=== PATIENT | male | born 1960 | race Caucasian/White ===

== ENCOUNTER 2019-06-27 14:50 | Inpatient (IN) ==
[2019-06-27 15:36] LABS: Basophils # (auto) 0.03 K/uL (0-0.2); Basophils % (auto) 0.2 %; Eosinophils # (auto) 0.25 K/uL (0-0.5); Eosinophils % (auto) 1.6 %; Hematocrit (blood only) 47.6 % (42-52); Hemoglobin 16.3 g/dL (14.0-18.0); Immature Granulocytes # (auto) 0.04 K/uL (0.00-0.02); Immature Granulocytes % (auto) 0.3 %; Lymphocytes # (auto) 2.21 K/uL (1.2-3.4); Lymphocytes % (auto) 14.2 %; Mean Corpuscular Hemoglobin 30.6 pg (25-34); Mean Corpuscular Hgb Conc 34.2 g/dL (32-36); Mean Corpuscular Volume 89.5 fL (80-100); Mean Platelet Volume 10.3 fL (7.4-10.4); Monocytes # (auto) 0.92 K/uL (0.11-0.59); Monocytes % (auto) 5.9 %; Neutrophils # (auto) 12.14 K/uL (1.4-6.5); Neutrophils % (auto) 77.8 %; Platelet Count 207 K/uL (130-400); RDW Coefficient of Variation 13.7 % (11.5-14.5); RDW Standard Deviation 44.8 fL (36.4-46.3); Red Blood Count 5.32 M/uL (4.7-6.1); White Blood Count 15.59 K/uL (4.8-10.8)
--- NOTE | 2019-06-27 15:38 | XRay Report ---
XR chest 1V portable CLINICAL HISTORY: Chest Pain pain COMPARISON STUDY: No previous studies for comparison. FINDINGS: The bones soft tissues and hemidiaphragms are normal. The cardiomediastinal silhouette is n ormal. The lungs are clear. The pulmonary vasculature is normal. IMPRESSION: Negative chest. The above report was generated using voice recognition software. It may contain grammatical, syntax or spelling errors. Electronically signed by: Charly Sosa M.D. 06/27/2019 3:37 PM
[2019-06-27 15:51] LABS: D Dimer 400 ug/L FEU (0-500); Partial Thromboplastin Ratio 0.9; Partial Thromboplastin Time 23.9 Seconds (21.0-31.0); Prothrombin Time 9.9 Seconds (9.0-12.0)
[2019-06-27 15:52] LABS: Alanine Aminotransferase 71 U/L (12-78); Aspartate Aminotransferase 72 U/L (15-37); Blood Urea Nitrogen 11 mg/dl (7-18); Carbon Dioxide 27 mmol/L (21-32); Chloride 107 mmol/L (98-107); Creatinine Clr Calc Pharmacy 87.1 ml/min; Est GFR (African American) 83.5; Est GFR (Non-African American) 72.1; Glucose 153 mg/dl (70-99); Lipase 126 U/L (73-393); Sodium 140 mmol/L (136-145)
[2019-06-27 15:57] LABS: Albumin Globulin Ratio 1.1 (0.9-2); Alkaline Phosphatase 110 U/L (45-117); Bilirubin,Total 0.6 mg/dl (0.2-1); Creatine Kinase 68 U/L (39-308); Creatine Kinase MB < 1.0 ng/ml (0.5-3.6); Globulin 3.6 gm/dl (2.5-4.0); Total Protein 7.6 gm/dl (6.4-8.2); Troponin I < 0.015 ng/ml (0-0.045)
--- NOTE | 2019-06-27 17:37 | History & Physical Report ---
Date of Service June 27, 2019 Assessment & Plan (1) Chest pain: We will follow the chest pain protocol. Monitor EKG and cardiac enzymes per protocol. Monitor the patient on the telemetry floor. Check echocardiogram. (2) Diabetes: Continue home meds. Sliding-scale insulin per protocol. (3) GERD (gastroesophageal reflux disease): Add PPI for GI prophylaxis. Maalox as needed basis. (4) DVT prophylaxis: Subcu Lovenox for DVT prophylaxis. 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 The patient presented to the emergency room with the complaints of chest pain which started this afternoon. He woke up from sleep with retrosternal chest pain radiating to the right side of his chest. He rates it as 8 out of 10 intensity lasted for approximately 2 hours. Currently the patient is chest pain-free. The first set of EKG and cardiac enzymes is negative; he will be admitted under observation for further evaluation and management. Allergies Allergy/AdvReac Type Severity Reaction Status Date / Time No Known Allergies Allergy Unverified 06/27/19 15:11 Home Medications Home Medications Medication Instructions Recorded Confirmed Type empagliflozin [Jardiance] 25 mg PO DAILY 06/27/19 06/27/19 History ibuprofen 600 mg PO Q6H PRN 06/27/19 06/27/19 History lisinopril 5 mg PO DAILY 06/27/19 06/27/19 History metformin [Glucophage XR] 1,000 mg PO BID 06/27/19 06/27/19 History pravastatin [Pravachol] 40 mg PO QPM 06/27/19 06/27/19 History Past Med/Surg History Medical History Diabetes Surgical History No pertinent past surgical history Family History Other Heart disease Social History Preferred Language: Tajik Communication Ability: Effective 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 Beliefs That Will Affect Care: None Current Living Situation: Spouse Other Information That Helps Us Care for You: No Feels Safe at Home: Yes Safety Concerns: Feels Safe At This Time Smoking Status: Current every day smoker Tobacco Type: cigarettes ; Cigarettes Per Day: 20 ; Hx Alcohol Use: Yes Alcohol type: beer Hx Substance Use: No Review of Systems Review of Systems: All systems reviewed & are unremarkable except as noted in HPI & below Physical Exam Physical Exam: GENERAL : No acute distress EYES: No icterus, gaze conjugate NOSE: No evidence of epistaxis MOUTH: No lesions or candidiasis, mucosa moist NECK: Supple LUNGS: CTA B/L, no wheezes, rales or rhonchi HEART: Regular, rate controlled ABDOMEN: Soft, NT, ND, BS Present EXTREMITIES: No LE edema, pedal pulses intact NEURO: A&OX3 Results & Data Vital Signs (Past 12 Hours) Vital Signs Temp Pulse Pulse Resp BP BP Pulse Ox 06/27/19 16:00 78 16 135/74 96 06/27/19 15:40 88 20 131/83 95 06/27/19 14:58 98.1 F 84 16 126/69 100 Laboratory Results 06/27/19 15:26 06/27/19 15:26 Diagnostic Findings cc: ~ XR chest 1V portable CLINICAL HISTORY: Chest Pain pain COMPARISON STUDY: No previous studies for comparison. FINDINGS: The bones soft tissues and hemidiaphragms are normal. The cardiomed iastinal silhouette is normal. The lungs are clear. The pulmonary vasculature is normal. IMPRESSION: Negative chest. Code Status & VTE Plan VTE Prophylaxis Plan VTE Prophylaxis will be ordered: Yes PG Care Time/CCT Total # of Minutes Spent Total Time Spent with Patient: Total time spent is greater than 50% [facility] (as documented) at patient's floor/unit and/or counseling patient: 60 m
[2019-06-27] MEDS ORDERED: NITROGLYCERIN SL 0.4 MG/TAB TAB SL PRN (19:38)
[2019-06-27] MEDS ORDERED: MoRPHine SULFATE 2 MG/ML CARP IV PRN (19:38)
[2019-06-27] MEDS ORDERED: IBUPROFEN 600 MG TAB PO PRN (19:38)
[2019-06-27] MEDS ORDERED: ALUMINUM/MAGNESIUM SUSP 30 ML UDC PO PRN (19:38)
[2019-06-27] MEDS ORDERED: DEXTROSE 50% 50 ML SYRINGE IV PRN (20:00)
[2019-06-27] MEDS ORDERED: GLUCOSE 10 TABS/TUBE PO PRN (20:00)
[2019-06-27] MEDS ORDERED: GLUCAGON FOR INJ 1 MG VIAL IM PRN (20:00)
[2019-06-27] MEDS ORDERED: CARBOHYDRATES FOR HYPOGLYCEMIA PO PRN (20:00)
[2019-06-27] MEDS ORDERED: GLUCOSE 40% GEL 15 GM TUBE PO PRN (20:00)
--- NOTE | 2019-06-27 20:04 | Emergency Department Note ---
Entered by Pako Devlin acting as a scribe for Mian Kang DO History of Present Illness General Chief complaint: Cardiac Assessment Stated complaint: chest pain Source: patient and RN notes reviewed History of Present Illness Onset (ago): hour(s) (1.5) Location: chest and right Pain Consistency: + now resolved Maximum Pain Intensity: 0 Relieved By: + medication Associated symptoms: + denies other symptoms (vomiting, back pain), + shortness of breath and + other (nausea) The patient is a 59 y/o male who presents to the ED w/ CC of a resolved episode of right sided chest pain that occurred 1.5 hours ago. 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 He reports he drove 10 hours last evening and is from [facility]. The patient notes he woke up today around 1330 and had right sided chest, shortness of breath, and nausea. He states his chest pain radiated into his right side and did not have back pain. The patient reports he is not having chest discomfort or nausea, and he did not vomit. He notes a family history of cardiac issues, and he has not had a stress test in a while. The patient states a history of diabetes, and he is a current smoker. He denies a history of blood clots, and personal cardiac history. Nursing staff notes the patient was given Ibuprofen and 1 SL nitroglycerin. Home Medications Home Medications Medication Instructions Recorded Confirmed Type empagliflozin [Jardiance] 25 mg PO DAILY 06/27/19 06/27/19 History ibuprofen 600 mg PO Q6H PRN 06/27/19 06/27/19 History lisinopril 5 mg PO DAILY 06/27/19 06/27/19 History metformin [Glucophage XR] 1,000 mg PO BID 06/27/19 06/27/19 History pravastatin [Pravachol] 40 mg PO QPM 06/27/19 06/27/19 History Allergies Allergy/AdvReac Type Severity Reaction Status Date / Time No Known Allergies Allergy Unverified 06/27/19 15:11 Past Med/Surg History Medical History Diabetes Surgical History No pertinent past surgical history Family History Other Heart disease Social History Preferred Language: Greek Communication Ability: Effective 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 and A total of 10 systems reviewed and were otherwise negative Physical Exam Vital Signs Vital Signs - 24 hr 06/27/19 14:58 06/27/19 15:26 06/27/19 15:40 Temperature 36.7 C Temperature Source Oral Sepsis Recent Fever Within 48 Hours No Sepsis New/Unexplained Change in Mental Status No Sepsis Action Taken by Nursing No Action Required Pulse Rate 84 Pulse Rate [Right Finger] 88 Respiratory Rate 16 20 Respiratory Effort / Characteristics Non-Labored Non-Labored Respiratory Depth Normal Normal Blood Pressure 126/69 Blood Pressure [Right Arm] 131/83 Blood Pressure Mean 88 Blood Pressure Mean [Right Arm] 99 Pulse Oximetry 100 95 Oxygen Delivery Method Room Air Room Air Room Air 06/27/19 16:00 Temperature Temperature Source Sepsis Recent Fever Within 48 Hours Sepsis New/Unexplained Change in Mental Status Sepsis Action Taken by Nursing Pulse Rate Pulse Rate [Right Finger] 78 Respiratory Rate 16 Respiratory Effort / Characteristics Non-Labored Respiratory Depth Normal Blood Pressure Blood Pressure [Right Arm] 135/74 Blood Pressure Mean Blood Pressure Mean [Right Arm] 94 Pulse Oximetry 96 Oxygen Delivery Method Room Air GENERAL: Patient is awake, alert, and in no acute distress.Patient is resting comfortably and showing no signs of anxiety EYES: The conjunctivae are clear. The pupils are round and reactive. EARS, NOSE, MOUTH AND THROAT: The nose is without any evidence of any deformity. Mucous membranes are moist.Tongue is midline NECK: The neck is nontender and supple. RESPIRATORY: Normal respiratory effort is noted. There is no evidence of wheezing rhonchi or rales to auscultation. CARDIOVASCULAR: Regular rate and rhythm noted. There no murmurs rubs or gallops normal S1 normal S2 GASTROINTESTINAL: The abdomen is soft. Bowel sounds are present in all qu adrants. Abdomen is nontender. MUSCULOSKELETAL/EXTREMITIES: There is no evidence of gross deformity. Full range of motion is noted in the hips and shoulders. SKIN: There is no obvious evidence of any rash. There are no petechiae, pallor or cyanosis noted. NEUROLOGIC: Patient is awake alert and oriented x3. Course 1508: Past medical records reviewed. The patient was evaluated in room C08. A complete history and physical exam was performed. 1618: Upon reevaluation, the patient is resting comfortably. I discussed laboratory and radiographic results with him. He verbalized agreement of the treatment plan. The patient will be evaluated for further management and care. 1720: I reviewed the patient's case with Dr. Pederson, [facility] [place]. He will evaluate the patient for further management. Medical Decision Making Differential Diagnosis Differential diagnoses includes but is not limited to acute coronary syndrome, myocardial infarction, pericarditis, pulmonary embolus, aortic dissection, pneumonia, pneumothorax, musculoskeletal, shingles, esophageal. Medical Records Attestation: I reviewed the patient's medical records. Home Medications Current Medication List: was personally reviewed by me Laboratory Data Attestation: I reviewed the patient's lab results. Result diagrams: 06/27/19 15:26 06/27/19 15:26 Lab Results 06/27/19 06/27/19 06/27/19 Range/Units 15:26 15:26 15:26 WBC 15.59 H (4.8-10.8) K/uL RBC 5.32 (4.7-6.1) M/uL Hgb 16.3 (14.0-18.0) g/dL Hct 47.6 (42-52) % MCV 89.5 (80-100) fL MCH 30.6 (25-34) pg MCHC 34.2 (32-36) g/dL RDW Std Deviation 44.8 (36.4-46.3) fL RDW Coeff of Anna 13.7 (11.5-14.5) % Plt Count 207 (130-400) K/uL MPV 10.3 (7.4-10.4) fL Immature Gran % (Auto) 0.3 % Neut % (Auto) 77.8 % Lymph % (Auto) 14.2 % [place] % (Auto) 5.9 % Eos % (Auto) 1.6 % Baso % (Auto) 0.2 % Immature Gran # (Auto) 0.04 H (0.00-0.02) K/uL Neut # (Auto) 12.14 H (1.4-6.5) K/uL Lymph # (Auto) 2.21 (1.2-3.4) K/uL [place] # (Auto) 0.92 H (0.11-0.59) K/uL Eos # (Auto) 0.25 (0-0.5) K/uL Baso # (Auto) 0.03 (0-0.2) K/uL PT 9.9 (9.0-12.0) Seconds INR 1.0 (0.9-1.1) APTT 23.9 (21.0-31.0) Seconds PTT Ratio 0.9 D-Dimer 400 (0-500) ug/L FEU Sodium 140 (136-145) mmol/L Potassium 5.0 (3.5-5.1) mmol/L Chloride 107 (98-107) mmol/L Carbon Dioxide 27 (21-32) mmol/L Anion Gap 6.0 (3-11) BUN 11 (7-18) mg/dl Creatinine 1.10 (0.6-1.4) mg/dl Est Cr Clr Drug Dosing 87.1 ml/min Est GFR ( Amer) 83.5 Est GFR (Non-Af Amer) 72.1 BUN/Creatinine Ratio 10.0 (10-20) Glucose 153 H (70-99) mg/dl Calcium 9.0 (8.5-10.1) mg/dl Total Bilirubin 0.6 (0.2-1) mg/dl AST 72 H (15-37) U/L ALT 71 (12-78) U/L Alkaline Phosphatase 110 (45-117) U/L Total Creatine Kinase 68 (39-308) U/L CK-MB (CK-2) < 1.0 (0.5-3.6) ng/ml CK/CKMB % Calc TNP Troponin I < 0.015 (0-0.045) ng/ml Total Protein 7.6 (6.4-8.2) gm/dl Albumin 4.0 (3.4-5.0) gm/dl Globulin 3.6 (2.5-4.0) gm/dl Albumin/Globulin Ratio 1.1 (0.9-2) Lipase 126 (73-393) U/L Imaging Data Radiologist's Impression: Radiology results as stated below per my review and the radiologist's interpretation: XR chest 1V portable CLINICAL HISTORY: Chest Pain pain COMPARISON STUDY: No previous studies for comparison. FINDINGS: The bones soft tissues and hemidiaphragms are normal. The cardiomediastinal silhouette is normal. The lungs are clear. The pulmonary vasculature is normal. IMPRESSION: Negative chest. The above report was generated using voice recognition software. It may contain grammatical, syntax or spelling errors. Electronically signed by: Charly Sosa M.D. 06/27/2019 3:37 PM ECG Data Attestation: I personally reviewed and interpreted this ECG as follows: Indication: chest pain Rate (beats per minute): 84 Rhythm: normal sinus ECG Findings: Other (NO: PACs, PVCs, ST elevation, ST depression.) Blood Pressure Blood Pressure Findings: Elevated blood pressure Blood Pressure Disposition: further management by hospitalist MDM Narrative The patient is a 59-year-old male who presented to the emergency department for an evaluation of chest pain. The patient had severe diaphoresis and chest pain. He is a fire truck driver by trade. He does have a history of diabetes. He does have a family history of heart disease as well. Given the patient's risk factors I do feel that he is high risk for acute coronary syndrome. I discussed the patient's laboratory and radiographic studies with him. I also discussed the limitations of the emergency department work-up for chest pain with him. Given his risk factors and heart score I discussed his case with the on-call [facility] hospitalist. They have agreed to evaluate the patient in the emergency department for further management disposition. The patient was treated with aspirin and nitroglycerin prior to arrival with good response. Impression & Plan Chest pain Discharge Plan Visit Data *Final* Discharge Date/Time: 06/27/19 18:49 Chief Complaint: Cardiac Assessment Stated Complaint: chest pain ED Provider: Mian Kang Discharge Problem: Chest pain Patient Disposition: Admitted As Inpatient Discharge Instructions Interventions: ED Discharge Assessment Last Done: 06/27/19 18:49 Discharge Problem: Chest pain Qualifiers: Chest pain type: unspecified Qualified Code(s): R07.9 - Chest pain, unspecified The scribe's documentation has been prepared under my direction and personally reviewed by me in its entirety. I confirm that the note above accurately reflects all work, treatment, procedures, and medical decision making performed by me.
[2019-06-27] MEDS: INSULIN ASPART 100 UNITS/ML 3 ML PEN SC SCH (20:14)
[2019-06-27] MEDS: PANTOprazole 40 MG TAB PO SCH (20:15)
[2019-06-27] MEDS: PRAVASTATIN SOD 40 MG TAB PO SCH (20:15)
[2019-06-27] MEDS: METFORMIN HCL ER 500 MG TABCR PO SCH (20:16)
[2019-06-27] MEDS ORDERED: ENOXAPARIN INJ 40 MG/0.4 ML SYR SQ SCH (21:00)
[2019-06-28] MEDS: METFORMIN HCL ER 500 MG TABCR PO SCH ×2 (08:45→17:19)
[2019-06-28] MEDS: PANTOprazole 40 MG TAB PO SCH (08:46)
[2019-06-28] MEDS: LISINOPRIL 5 MG TAB PO SCH (08:46)
[2019-06-28] MEDS: INSULIN ASPART 100 UNITS/ML 3 ML PEN SC SCH ×4 (08:48→21:00)
[2019-06-28] MEDS ORDERED: ASPIRIN 81 MG ECTAB PO SCH (09:00)
[2019-06-28 10:27] LABS: Basophils # (auto) 0.02 K/uL (0-0.2); Basophils % (auto) 0.2 %; Eosinophils # (auto) 0.29 K/uL (0-0.5); Eosinophils % (auto) 3.4 %; Hematocrit (blood only) 48.5 % (42-52); Hemoglobin 16.4 g/dL (14.0-18.0); Immature Granulocytes # (auto) 0.02 K/uL (0.00-0.02); Immature Granulocytes % (auto) 0.2 %; Lymphocytes # (auto) 2.44 K/uL (1.2-3.4); Lymphocytes % (auto) 28.7 %; Mean Corpuscular Hemoglobin 30.7 pg (25-34); Mean Corpuscular Hgb Conc 33.8 g/dL (32-36); Mean Corpuscular Volume 90.7 fL (80-100); Mean Platelet Volume 10.2 fL (7.4-10.4); Monocytes # (auto) 0.67 K/uL (0.11-0.59); Monocytes % (auto) 7.9 %; Neutrophils # (auto) 5.05 K/uL (1.4-6.5); Neutrophils % (auto) 59.6 %; Platelet Count 206 K/uL (130-400); RDW Coefficient of Variation 13.9 % (11.5-14.5); RDW Standard Deviation 45.5 fL (36.4-46.3); Red Blood Count 5.35 M/uL (4.7-6.1); White Blood Count 8.49 K/uL (4.8-10.8)
[2019-06-28 10:48] LABS: Estimated Average Glucose 171 mg/dl; Hemoglobin A1C 7.6 % (4.5-5.6)
[2019-06-28 10:54] LABS: Alanine Aminotransferase 247 U/L (12-78); Albumin Level 3.8 gm/dl (3.4-5.0); Aspartate Aminotransferase 115 U/L (15-37); BUN Creatinine Ratio 15.1 (10-20); Blood Urea Nitrogen 17 mg/dl (7-18); Calcium 9.1 mg/dl (8.5-10.1); Carbon Dioxide 26 mmol/L (21-32); Chloride 107 mmol/L (98-107); Cholesterol 176 mg/dl (0-200); Creatinine Clr Calc Pharmacy 84.9 ml/min; Est GFR (African American) 82.6; Est GFR (Non-African American) 71.3; Glucose 150 mg/dl (70-99); Potassium 4.8 mmol/L (3.5-5.1); Sodium 138 mmol/L (136-145); Triglycerides 219 mg/dl (0-150); VLDL Cholesterol 44 mg/dl
[2019-06-28 10:58] LABS: Alkaline Phosphatase 153 U/L (45-117); Bilirubin,Total 0.6 mg/dl (0.2-1); Chol HDL Ratio 6; Globulin 3.6 gm/dl (2.5-4.0); HDL Cholesterol 32 mg/dl; LDL Cholesterol Calculated 100 mg/dl; Total Protein 7.4 gm/dl (6.4-8.2); Troponin I < 0.015 ng/ml (0-0.045)
[2019-06-28 14:56] LABS: BUN Creatinine Ratio 16.5 (10-20); Calcium 9.1 mg/dl (8.5-10.1); Creatinine Clr Calc Pharmacy 90.6 ml/min; Est GFR (African American) 89.4; Est GFR (Non-African American) 77.1; Potassium 4.4 mmol/L (3.5-5.1); Prothrombin Time 10.1 Seconds (9.0-12.0)
[2019-06-28 15:03] LABS: Albumin Globulin Ratio 1.1 (0.9-2); Bilirubin,Total 1.9 mg/dl (0.2-1); Globulin 3.6 gm/dl (2.5-4.0); Total Protein 7.6 gm/dl (6.4-8.2)
[2019-06-28 15:17] LABS: Hepatitis B Surface Antigen Neg (Neg)
[2019-06-28 15:45] LABS: Hepatitis C IgG 13Yrs+Old_Rflx Neg (Neg)
[2019-06-28 15:53] LABS: Lyme Ab IgG w/WB Rflx Negative (Negative); Lyme Ab IgM w/WB Rflx Negative (Negative)
--- NOTE | 2019-06-28 15:55 | Ultrasound Report ---
US liver CLINICAL HISTORY: elevated AST-ALT, RUQ pain COMPARISON STUDY: No previous studies for comparison. FINDINGS: The pancreas was not visualized due to overlying bowel gas shadowing. The liver was of increased echogenicity, nonspecific finding most often seen in hepatic steatosis. No focal masses were visualized. The liver was mildly enlarged measuring 21 cm. There is a stone filled gallbladder. There was no significant gallbladder wall thickening. The common bile duct is mildly dilated measuring 8 mm. There are multiple right renal calculi. There is dilatation of the upper pole collecting system versu s a parapelvic cyst. IMPRESSION: 1. Increased hepatic echogenicity, a nonspecific finding most often seen with hepatic steatosis 2. Stone filled gallbladder 3. Mildly dilated common bile duct measuring 8 mm 4. Right-sided nephrolithiasis. Dilatation of the upper pole collecting system versus a parapelvic cy st. Electronically signed by: Washingtno Odonnell M.D. 06/28/2019 3:54 PM
[2019-06-28] MEDS: LACTATED RINGER'S 1,000 ML IV SCH (17:12)
--- NOTE | 2019-06-28 18:17 | Hospitalist Progress Note ---
Date of Service June 28, 2019 Assessment & Plan (1) Cholelithiasis with choledocholithiasis: Concerning US, CBD dilatation, bilirubin and AST/ALT increases for obstruction. Discussed with Cely PITTMAN in contact with Dr Dominguez, recommended MRCP, blood cultures and NPO after midnight for consideration of ERCP. Will also contact surgery to discuss cholecystectomy after this. Afebrile, no pain currently, WBC normal today. Will defer antibiotics for now. Repeat CMP in AM. (2) Diabetes: Stop oral meds and switch to insulin sliding scale alone. If consistently elevated glucose levels will add a basal dose of insulin. Holding ASA in anticipation of ERCP/cholecystectomy. (3) Hepatic steatosis: Follow up with PCP. (4) Hyperlipidemia: Continue home dose pravastatin. LDL 100. (5) Chest pain: Atypical for cardiac pain and given current LFTs and US findings above pain was due to gallstones. Serial troponins negative. Due to significant risk factors he underwent stress echocardiogram which was negative for induced ischemia (6) DVT prophylaxis: Hold lovenox in anticipation of ERCP/cholecystectomy. Subjective Patient reports feeling well this morning. No further pains overnight. Afebrile. Revisited history with the patient. He reports right upper abdominal quadrant, right lower chest pain occurring at rest, aching, lasted for 1 hour, associated nausea and diaphoresis. Had similar pains in the past which she is put down to gallstones. He reports previous ultrasound confirming gallstones. He also reports an extensive history of kidney stones requiring stents and lithotripsy although this has been a problem for over a year. He reports exercise tolerance of walking 1 mile without shortness of breath or chest pain. No orthopnea, PND, claudication, palpitations. He has significant risk factors for coronary artery disease including smoking, diabetes, family history of father with an OH at 45. Review of Systems Review of Systems: All systems reviewed & are unremarkable except as noted in HPI & below Physical Exam Constitutional: well developed and + obese; no acute distress Eyes: PERRL, conjunctivae normal, anicteric sclerae ENMT: external ear and nose normal, oropharynx normal Neck: trachea midline and + thick neck Respiratory: normal respiratory effort, lungs clear to auscultation Cardiovascular: RRR, no murmur, no edema Gastrointestinal (Abdomen): normal bowel sounds, soft, nontender, no hepatosplenomegaly Musculoskeletal: no cyanosis or clubbing, extremities motor strength 5/5 Skin: no rashes, warm and dry Neurologic: awake; no focal motor deficits and not confused Speech / Cognition: normal speech Motor/Sensory: no pronator drift and no sensory deficit Psychiatric: A+Ox3, euthymic affect Results & Data Vital Signs (Past 12 Hours) Vital Signs Temp Pulse Pulse Resp BP Pulse Ox 06/28/19 15:25 89 06/28/19 12:52 98.2 F 84 20 147/90 H 94 06/28/19 08:28 97.9 F 75 20 128/80 94 06/28/19 07:14 72 PG Care Time/CCT Total # of Minutes Spent Total Time Spent with Patient: Total time spent is greater than 50% in coordination of care (as documented) at patient's floor/unit and/or counseling patient: (1) Diabetes Diabetes mellitus type: type 2 Diabetes mellitus long term care pharmacist insulin use: without senior living use Diabetes mellitus complication status: without complication Qualified Code(s): E11.9 - Type 2 diabetes mellitus without com plications (2) Hyperlipidemia Hyperlipidemia type: unspecified Qualified Code(s): E78.5 - Hyperlipidemia, unspecified (3) Chest pain Chest pain type: unspecified Qualified Code(s): R07.9 - Chest pain, unspecified
--- NOTE | 2019-06-28 21:39 | Magnetic Resonance Report ---
MRCP CLINICAL HISTORY: Increasing bilirubin, CBD dilatation. Right upper quadrant pain. TECHNIQUE: Utilizing a 1.5 Betina magnet and dedicated coil, multiplanar, multiecho imaging of the [facility] abdomen was performed utilizing heavily T2 weighted pulsing sequences without IV contrast. COMPARISON STUDY: Right upper quadrant ultrasound June 28, 2019. FINDINGS: There is no intra or extrahepatic biliary ductal dilatation. The 3-D MRCP sequence is mildl y compromised by motion artifact. There are suspected distal common bile duct calculi that measure up to 7 mm. There are numerous gallstones within the gallbladder. There is no evidence for acute cholec ystitis on this exam. Course and caliber of the main pancreatic duct is normal. Fatty infiltration of the liver is better depicted on ultrasound performed earlier today. No hepatic lesions are identifie d on this unenhanced study. Unenhanced images of the spleen and right adrenal gland are unremarkable. A 2.4 cm left adrenal nodule is present. Note is made of mild right hydronephrosis due to a large ri ght renal pelvis calculus which is suboptimally assessed by MRI. This measures approximately 2.6 x 1. 5 cm. There is no left hydronephrosis. No ascites is present. No abdominal lymphadenopathy is noted. A splenule is noted. IMPRESSION: 1. Multiple suspected distal common bile duct calculi which measure up to approximately 7 mm. No bili deandre ductal dilatation. 2. Cholelithiasis. 3. Large right renal pelvis calculus, measuring approximately 2.6 x 1.5 cm, with mild right hydroneph rosis. The calculus could be better assessed by CT. 4. Indeterminate 2.4 cm left adrenal nodule. Electronically signed by: Byron Rodriguez M.D. 06/28/2019 9:38 PM
[2019-06-28] MEDS: PRAVASTATIN SOD 40 MG TAB PO SCH (22:04)
[2019-06-29] MEDS: LACTATED RINGER'S 1,000 ML IV SCH ×4 (02:04→23:44)
[2019-06-29] MEDS ORDERED: Nursing to Pharmacy Communication ONE ×2 (04:53→16:10)
[2019-06-29 06:30] LABS: Basophils # (auto) 0.04 K/uL (0-0.2); Basophils % (auto) 0.5 %; Eosinophils # (auto) 0.27 K/uL (0-0.5); Eosinophils % (auto) 3.1 %; Hematocrit (blood only) 47.6 % (42-52); Hemoglobin 16.2 g/dL (14.0-18.0); Immature Granulocytes # (auto) 0.01 K/uL (0.00-0.02); Immature Granulocytes % (auto) 0.1 %; Lymphocytes # (auto) 2.65 K/uL (1.2-3.4); Lymphocytes % (auto) 30.8 %; Mean Corpuscular Hemoglobin 30.6 pg (25-34); Mean Corpuscular Volume 89.8 fL (80-100); Mean Platelet Volume 10.3 fL (7.4-10.4); Monocytes # (auto) 0.97 K/uL (0.11-0.59); Monocytes % (auto) 11.3 %; Neutrophils # (auto) 4.67 K/uL (1.4-6.5); Neutrophils % (auto) 54.2 %; Platelet Count 221 K/uL (130-400); RDW Coefficient of Variation 13.9 % (11.5-14.5); RDW Standard Deviation 45.6 fL (36.4-46.3); White Blood Count 8.61 K/uL (4.8-10.8)
[2019-06-29] MEDS: INSULIN ASPART 100 UNITS/ML 3 ML PEN SC SCH ×4 (06:33→21:01)
[2019-06-29 07:15] LABS: Albumin Globulin Ratio 0.9 (0.9-2); Albumin Level 3.5 gm/dl (3.4-5.0); BUN Creatinine Ratio 15.1 (10-20); Bilirubin,Total 1.5 mg/dl (0.2-1); Calcium 8.5 mg/dl (8.5-10.1); Est GFR (African American) 84.5; Est GFR (Non-African American) 72.9; Globulin 3.8 gm/dl (2.5-4.0); Total Protein 7.3 gm/dl (6.4-8.2)
[2019-06-29 07:51] LABS: Potassium 4.1 mmol/L (3.5-5.1)
[2019-06-29] MEDS: LISINOPRIL 5 MG TAB PO SCH (08:27)
--- NOTE | 2019-06-29 09:41 | History & Physical Report ---
Date of Service June 29, 2019 Assessment & Plan (1) Cholelithiasis with choledocholithiasis: Patient with a history of abdominal discomfort found to have choledocholithiasis on MRCP with elevated liver enzymes. Given this we will plan to do ERCP for gallstone extraction. I have discussed the risks and benefits of the procedure to include bleeding, infection, perforation, pancreatitis and need for follow-up studies. Recommendations ERCP being arranged Would suggest a general surgery consultation History of Present Illness Chief Complaint: Abdominal pain 59-year-old male presented to the hospital on 27 June for evaluation of right-sided discomfort. Initially the patient was thought to have a cardiac etiology given his long history of smoking. He was initially ruled out for m yocardial infarction and found to have new elevation of his liver associated enzymes. MRCP was performed yesterday evening which showed evidence of choledocholithiasis. The patient did have a significant white blood cell count elevation at the initial part of his admission which is now normalized. He denies having fevers chills sweats or Rigor's today. He does note that his abdominal pain continues and that it began several weeks ago. Allergies Allergy/AdvReac Type Severity Reaction Status Date / Time No Known Allergies Allergy Unverified 06/27/19 15:11 Home Medications Home Medications Medication Instructions Recorded Confirmed Type empagliflozin [Jardiance] 25 mg PO DAILY 06/27/19 06/27/19 History ibuprofen 600 mg PO Q6H PRN 06/27/19 06/27/19 History lisinopril 5 mg PO DAILY 06/27/19 06/27/19 History metformin [Glucophage XR] 1,000 mg PO BID 06/27/19 06/27/19 History pravastatin [Pravachol] 40 mg PO QPM 06/27/19 06/27/19 History Past Med/Surg History Medical History Diabetes Surgical History No pertinent past surgical history Family History Other Heart disease Social History Preferred Language: Upper Sorbian Communication Ability: Effective Sluice Tender Required: No Beliefs That Will Affect Care: None Current Living Situation: Spouse Other Information That Helps Us Care for You: No Feels Safe at Home: Yes Safety Concerns: Feels Safe At This Time Smoking Status: Current every day smoker Tobacco Type: cigarettes ; Cigarettes Per Day: 20 ; Hx Alcohol Use: Yes Alcohol type: beer Hx Substance Use: No Review of Systems no sweats no diplopia no change in sputum no chest pain with activity + bloating, + nausea and + vomiting; no hematemesis and no pain with swallowing no urinary frequency no radicular pain no falls no hopelessness no polydipsia no coagulopathy Physical Exam Constitutional: well developed Eyes: Mild icterus Neck: trachea midline, no thyromegaly Respiratory: normal respiratory effort; does not use accessory muscles Faint expiratory wheezes Cardiovascular: Rate/Rhythm: regular rate and regular rhythm; not tachycardic Gastrointestinal (Abdomen): Inspection/Auscultation: abdomen not distended Percussion/Palpation: + abdomen tender Right upper quadrant tender to palpation Skin: no lesions and no jaundice Neurologic: awake; not confused and not obtunded Motor/Sensory: no tremor Results & Data Vital Signs (Past 12 Hours) Vital Signs Temp Pulse Pulse Resp BP Pulse Ox 06/29/19 07:34 36.8 C 69 16 125/73 91 06/29/19 07:22 69 06/29/19 03:00 36.8 C 85 18 122/78 93 06/29/19 00:00 85 06/28/19 23:00 36.4 C L 80 20 145/90 H 95 Laboratory Results Laboratory Results - last 24 hr 06/28/19 06/28/19 06/28/19 10:14 10:14 10:14 WBC 8.49 RBC 5.35 Hgb 16.4 Hct 48.5 MCV 90.7 MCH 30.7 MCHC 33.8 RDW Std Deviation 45.5 RDW Coeff of Anna 13.9 Plt Count 206 MPV 10.2 Immature Gran % (Auto) 0.2 Neut % (Auto) 59.6 Lymph % (Auto) 28.7 [place] % (Auto) 7.9 Eos % (Auto) 3.4 Baso % (Auto) 0.2 Immature Gran # (Auto) 0.02 Neut # (Auto) 5.05 Lymph # (Auto) 2.44 [place] # (Auto) 0.67 H Eos # (Auto) 0.29 Baso # (Auto) 0.02 PT INR Sodium 138 Potassium 4.8 Chloride 107 Carbon Dioxide 26 Anion Gap 5.0 BUN 17 D Creatinine 1.11 Est Cr Clr Drug Dosing 84.9 Est GFR ( Amer) 82.6 Est GFR (Non-Af Amer) 71.3 BUN/Creatinine Ratio 15.1 Glucose 150 H POC Glucose Estimat Average Glucose 171 Hemoglobin A1c 7.6 H Calcium 9.1 Total Bilirubin 0.6 AST 115 H ALT 247 H Alkaline Phosphatase 153 H Troponin I < 0.015 Total Protein 7.4 Albumin 3.8 Globulin 3.6 Albumin/Globulin Ratio 1.0 Triglycerides 219 H Cholesterol 176 LDL Cholesterol, Calc 100 VLDL Cholesterol, Calc 44 HDL Cholesterol 32 Cholesterol/HDL Ratio 6 Acetaminophen Lyme Disease IgG Ab Lyme Disease IgM Ab Hepatitis A IgM Ab Hep Bs Antigen Hep B Core IgM Ab Hepatitis C Antibody 06/28/19 06/28/19 06/28/19 11:40 14:21 14:21 WBC RBC Hgb Hct MCV MCH MCHC RDW Std Deviation RDW Coeff of [place] Plt Count MPV Immature Gran % (Auto) Neut % (Auto) Lymph % (Auto) [place] % (Auto) Eos % (Auto) Baso % (Auto) Immature Gran # (Auto) Neut # (Auto) Lymph # (Auto) [place] # (Auto) Eos # (Auto) Baso # (Auto) PT INR Sodium 138 Potassium 4.4 Chloride 107 Carbon Dioxide 23 Anion Gap 9.0 BUN 17 Creatinine 1.04 Est Cr Clr Drug Dosing 90.6 Est GFR ( Amer) 89.4 Est GFR (Non-Af Amer) 77.1 BUN/Creatinine Ratio 16.5 Glucose 109 H POC Glucose 119 H Estimat Average Glucose Hemoglobin A1c Calcium 9.1 Total Bilirubin 1.9 H D AST 237 H ALT 312 H Alkaline Phosphatase 169 H Troponin I Total Protein 7.6 Albumin 4.0 Globulin 3.6 Albumin/Globulin Ratio 1.1 Triglycerides Cholesterol LDL Cholesterol, Calc VLDL Cholesterol, Calc HDL Cholesterol Cholesterol/HDL Ratio Acetaminophen Lyme Disease IgG Ab Lyme Disease IgM Ab Hepatitis A IgM Ab Hep Bs Antigen Neg Hep B Core IgM Ab Hepatitis C Antibody Neg 06/28/19 06/28/19 06/28/19 14:21 14:21 14:21 WBC RBC Hgb Hct MCV MCH MCHC RDW Std Deviation RDW Coeff of [place] Plt Count MPV Immature Gran % (Auto) Neut % (Auto) Lymph % (Auto) [place] % (Auto) Eos % (Auto) Baso % (Auto) Immature Gran # (Auto) Neut # (Auto) Lymph # (Auto) [place] # (Auto) Eos # (Auto) Baso # (Auto) PT 10.1 INR 1.0 Sodium Potassium Chloride Carbon Dioxide Anion Gap BUN Creatinine Est Cr Clr Drug Dosing Est GFR ( Amer) Est GFR (Non-Af Amer) BUN/Creatinine Ratio Glucose POC Glucose Estimat Average Glucose Hemoglobin A1c Calcium Total Bilirubin AST ALT Alkaline Phosphatase Troponin I Total Protein Albumin Globulin Albumin/Globulin Ratio Triglycerides Cholesterol LDL Cholesterol, Calc VLDL Cholesterol, Calc HDL Cholesterol Cholesterol/HDL Ratio Acetaminophen < 2 L Lyme Disease IgG Ab Lyme Disease IgM Ab Hepatitis A IgM Ab Pending Hep Bs Antigen Hep B Core IgM Ab Pending Hepatitis C Antibody 06/28/19 06/28/19 06/28/19 14:21 16:42 20:17 WBC RBC Hgb Hct MCV MCH MCHC RDW Std Deviation RDW Coeff of Anna Plt Count MPV Immature Gran % (Auto) Neut % (Auto) Lymph % (Auto) [place] % (Auto) Eos % (Auto) Baso % (Auto) Immature Gran # (Auto) Neut # (Auto) Lymph # (Auto) [place] # (Auto) Eos # (Auto) Baso # (Auto) PT INR Sodium Potassium Chloride Carbon Dioxide Anion Gap BUN Creatinine Est Cr Clr Drug Dosing Est GFR ( Amer) Est GFR (Non-Af Amer) BUN/Creatinine Ratio Glucose POC Glucose 105 H 101 H Estimat Average Glucose Hemoglobin A1c Calcium Total Bilirubin AST ALT Alkaline Phosphatase Troponin I Total Protein Albumin Globulin Albumin/Globulin Ratio Triglycerides Cholesterol LDL Cholesterol, Calc VLDL Cholesterol, Calc HDL Cholesterol Cholesterol/HDL Ratio Acetaminophen Lyme Disease IgG Ab Negative Lyme Disease IgM Ab Negative Hepatitis A IgM Ab Hep Bs Antigen Hep B Core IgM Ab Hepatitis C Antibody 06/29/19 06/29/19 06/29/19 06:03 06:16 06:16 WBC 8.61 RBC 5.30 Hgb 16.2 Hct 47.6 MCV 89.8 MCH 30.6 MCHC 34.0 RDW Std Deviation 45.6 RDW Coeff of [place] 13.9 Plt Count 221 MPV 10.3 Immature Gran % (Auto) 0.1 Neut % (Auto) 54.2 Lymph % (Auto) 30.8 [place] % (Auto) 11.3 Eos % (Auto) 3.1 Baso % (Auto) 0.5 Immature Gran # (Auto) 0.01 Neut # (Auto) 4.67 Lymph # (Auto) 2.65 [place] # (Auto) 0.97 H Eos # (Auto) 0.27 Baso # (Auto) 0.04 PT INR Sodium 138 Potassium Chloride 107 Carbon Dioxide 24 Anion Gap 7.0 BUN 17 Creatinine 1.09 Est Cr Clr Drug Dosing 86.0 Est GFR ( Amer) 84.5 Est GFR (Non-Af Amer) 72.9 BUN/Creatinine Ratio 15.1 Glucose 117 H POC Glucose 121 H Estimat Average Glucose Hemoglobin A1c Calcium 8.5 Total Bilirubin 1.5 H AST ALT 449 H Alkaline Phosphatase 200 H Troponin I Total Protein 7.3 Albumin 3.5 Globulin 3.8 Albumin/Globulin Ratio 0.9 Triglycerides Cholesterol LDL Cholesterol, Calc VLDL Cholesterol, Calc HDL Cholesterol Cholesterol/HDL Ratio Acetaminophen Lyme Disease IgG Ab Lyme Disease IgM Ab Hepatitis A IgM Ab Hep Bs Antigen Hep B Core IgM Ab Hepatitis C Antibody 06/29/19 07:25 WBC RBC Hgb Hct MCV MCH MCHC RDW Std Deviation RDW Coeff of [place] Plt Count MPV Immature Gran % (Auto) Neut % (Auto) Lymph % (Auto) [place] % (Auto) Eos % (Auto) Baso % (Auto) Immature Gran # (Auto) Neut # (Auto) Lymph # (Auto) [place] # (Auto) Eos # (Auto) Baso # (Auto) PT INR Sodium Potassium 4.1 Chloride Carbon Dioxide Anion Gap BUN Creatinine Est Cr Clr Drug Dosing Est GFR ( Amer) Est GFR (Non-Af Amer) BUN/Creatinine Ratio Glucose POC Glucose Estimat Average Glucose Hemoglobin A1c Calcium Total Bilirubin AST 187 H ALT Alkaline Phosphatase Troponin I Total Protein Albumin Globulin Albumin/Globulin Ratio Triglycerides Cholesterol LDL Cholesterol, Calc VLDL Cholesterol, Calc HDL Cholesterol Cholesterol/HDL Ratio Acetaminophen Lyme Disease IgG Ab Lyme Disease IgM Ab Hepatitis A IgM Ab Hep Bs Antigen Hep B Core IgM Ab Hepatitis C Antibody Diagnostic Findings MRCP CLINICAL HISTORY: Increasing bilirubin, CBD dilatation. Right upper quadrant pain. TECHNIQUE: Utilizing a 1.5 Betina magnet and dedicated coil, multiplanar, multiecho imaging of the upper abdomen was performed utilizing heavily T2 weighted pulsing sequences without IV contrast. COMPARISON STUDY: Right upper quadrant ultrasound June 28, 2019. FINDINGS: There is no intra or extrahepatic biliary ductal dilatation. The 3-D MRCP sequence is mildly compromised by motion artifact. There are suspected distal common bile duct calculi that measure up to 7 mm. There are numerous gallstones within the gallbladder. There is no evidence for acute cholecystitis on this exam. Course and caliber of the main pancreatic duct is normal. Fatty infiltration of the liver is better depicted on ultrasound performed earlier to day. No hepatic lesions are identified on this unenhanced study. Unenhanced images of the spleen and right adrenal gland are unremarkable. A 2.4 cm left adrenal nodule is present. Note is made of mild right hydronephrosis due to a large right renal pelvis calculus which is suboptimally assessed by MRI. This measures approximately 2.6 x 1.5 cm. There is no left hydronephrosis. No ascites is present. No abdominal lymphadenopathy is noted. A splenule is noted. IMPRESSION: 1. Multiple suspected distal common bile duct calculi which measure up to approximately 7 mm. No biliary ductal dilatation. 2. Cholelithiasis. 3. Large right renal pelvis calculus, measuring approximately 2.6 x 1.5 cm, with mild right hydronephrosis. The calculus could be better assessed by CT. 4. Indeterminate 2.4 cm left adrenal nodule. Code Status & VTE Plan VTE Prophylaxis Plan VTE Prophylaxis will be ordered: Yes
--- NOTE | 2019-06-29 11:07 | Anesthesiology Consultation ---
Date of Service June 29, 2019 Assessment & Plan Chart Review Chart Review: Acceptable Risk for Surgery Consults Requested none ASA ASA2 Proposed Anesthesia Anesthesia Type: General Risk / Benefits Reviewed With: PT / POA / Parent / Guardian, Accepts Plan and Informed Consent Obtained History Surgery Operation Date: 06/29/19 13:00 Proposed Procedures p Endoscopic Retrograde Cholangiopancreato Leslee Garcia Dominguez Height/Weight Height: 5 ft 10 in Weight: 104.2 kg Allergies Allergy/AdvReac Type Severity Reaction Status Date / Time No Known Allergies Allergy Unverified 06/27/19 15:11 Medications Home Medications Medication Instructions Recorded Confirmed Last Taken empagliflozin [Jardiance] 25 mg PO DAILY 06/27/19 06/27/19 Unknown ibuprofen 600 mg PO Q6H PRN 06/27/19 06/27/19 Unknown lisinopril 5 mg PO DAILY 06/27/19 06/27/19 Unknown metformin [Glucophage XR] 1,000 mg PO BID 06/27/19 06/27/19 Unknown pravastatin [Pravachol] 40 mg PO QPM 06/27/19 06/27/19 Unknown Active Medications Generic Name Dose Route Start Last Admin Trade Name Freq PRN Reason Stop Dose Admin Aspirin 81 mg 06/28/19 09:00 06/28/19 08:46 Ecotrin Ectab PO 07/28/19 08:59 81 mg QAM VINAY Administration Enoxaparin Sodium 40 mg 06/27/19 21:00 06/27/19 20:15 Lovenox SQ 07/27/19 20:59 40 mg Q24H VINAY Administration Lactated Ringer's 1,000 mls @ 125 mls/hr 06/28/19 17:00 06/29/19 08:27 Lr IV 07/28/19 16:59 125 mls/hr .Q8H VINAY Administration Insulin Aspart 0 units 06/29/19 06:00 06/29/19 06:33 Novolog Flexpen SC 07/29/19 05:59 Not Given Q6 VINAY Lisinopril 5 mg 06/28/19 09:00 06/29/19 08:27 Zestril PO 07/28/19 08:59 5 mg DAILY VINAY Administration Miscellaneous 1 ea 06/28/19 00:00 06/29/19 08:17 Order Awaiting Action N/A 07/28/19 00:00 Not Given QS VINAY Pravastatin Sodium 40 mg 06/27/19 21:00 06/28/19 22:04 Pravachol PO 07/27/19 20:59 40 mg QPM VINAY Administration NPO Date Last Intake of Fluids: 06/28/19 Time Last Intake of Fluids: 23:30 Date Last Intake of Solids: 06/28/19 Time Last Intake of Solids: 22:30 Past Medical History Medical History Diabetes HTN (hypertension) Exercise / Class Metabolic Activity II 4-5 Yardwork/Stairs/Walk up hill Past Family History Family History Other Heart disease Past Surgical History Surgical History No pertinent past surgical history S/P appendectomy Past Anesthesia History No Hx of Anesthesia Complications and No Family Hx of Anesthesia Complications History of PONV No Hx of PONV and No Hx of Motion Sickness Social History Smoking Status: Current every day smoker tobacco type: cigarettes Smoking cigarettes per day: 20 Hx Alcohol Use: Yes Alcohol type: beer alcohol intake frequency: a few times a week Hx Substance Use: No Physical Exam Vital Signs Last Vital Signs Temp 98.2 F 06/29/19 11:32 Pulse 72 06/29/19 11:32 Resp 19 06/29/19 11:32 BP 165/108 H 06/29/19 11:32 Pulse Ox 97 06/29/19 11:32 ENMT Mouth: + edentulous Thyromental Distance: > or= 3.5 Finger Breadths Mallampati Class: II Neck normal visual inspection Respiratory normal respiratory effort Auscultation: lungs clear to auscultation bilaterally Cardiovascular Rate/Rhythm: regular rate and regular rhythm Testing Laboratory Results 06/29/19 06:16 06/29/19 07:25 PT 10.1 Seconds (9.0-12.0) 06/28/19 14:21 INR 1.0 (0.9-1.1) 06/28/19 14:21 APTT 23.9 Seconds (21.0-31.0) 06/27/19 15:26 Hemoglobin A1c 7.6 % (4.5-5.6) H 06/28/19 10:14 06/29/19 06:03 POC Glucose 121 H Electrocardiogram Date: 06/27/19 Findings: + NSR @ (84 bpm) Chest X-Ray Date: 06/27/19 Findings: + NAD Echocardiogram Date: 06/28/19 EF: 50-55% LV Function: normal RWMA: + none Stress Test Date: 06/28/19 Type: exercise Findings: + WNL and + achieved max HR (88% MPHR)
[2019-06-29] MEDS ORDERED: fentaNYL citrate 100 MCG/2 ML VIAL IV PRN (11:11)
[2019-06-29] MEDS ORDERED: ATROPINE SULFATE 0.1 MG/ML 10ML SYR IV PRN (11:11)
[2019-06-29] MEDS ORDERED: ONDANSETRON INJ 2 MG/ML 2 ML VIAL IV PRN (11:11)
[2019-06-29] MEDS ORDERED: ePHEDrine sulfate 50 MG/ML AMP IV PRN (11:11)
--- NOTE | 2019-06-29 12:00 | Surgery Consultation ---
Date of Consultation June 29, 2019 Assessment & Plan (1) Cholelithiasis with choledocholithiasis: This patient was admitted with pain and was found to have choledocholithiasis. He also has Lary lithiasis without evidence of acute cholecystitis. He is to undergo ERCP. We discussed removing his gallbladder at the same time and the patient wishes to proceed. Of explained to him the laparoscopic cholecystectomy and the possible need to convert to an open procedure. I explained some of the possible complications associated with these procedures and he understands. He has signed a consent form for laparoscopic cholecystectomy with possible open cholecystectomy. I answered all his questions. History of Present Illness Reason for Consultation: Cholelithiasis with choledocholithiasis Requesting Physician: Zhen Oliver MD Attending Physician: Zhen Oliver MD History of Present Illness I have been asked by Dr. Oliver to see this 59-year-old male who presented to the emergency room with a complaint of retrosternal pain. Cardiac work-up was negative. The patient has had pain like this before a few years ago and was told that he had gallstones but never pursued surgical intervention. He has had mild discomfort on occasion. He developed severe pain with nausea but no vomiting. He has not had a history of jaundice, hepatitis or pancreatitis. MRCP demonstrated cholelithiasis as well as choledocholithiasis but there was no evidence of acute cholecystitis. At the present time the patient is pain-free. Allergies Allergy/AdvReac Type Severity Reaction Status Date / Time No Known Allergies Allergy Unverified 06/27/19 15:11 Home Medications Home Medications Medication Instructions Recorded Confirmed Type empagliflozin [Jardiance] 25 mg PO DAILY 06/27/19 06/27/19 History ibuprofen 600 mg PO Q6H PRN 06/27/19 06/27/19 History lisinopril 5 mg PO DAILY 06/27/19 06/27/19 History metformin [Glucophage XR] 1,000 mg PO BID 06/27/19 06/27/19 History pravastatin [Pravachol] 40 mg PO QPM 06/27/19 06/27/19 History Patient History Medical History Diabetes HTN (hypertension) Surgical History S/P appendectomy Family History Other Heart disease Social History Preferred Language: Uzbek Communication Ability: Effective Executive Personal Assistant Required: No Beliefs That Will Affect Care: None Current Living Situation: Spouse Other Information That Helps Us Care for You: No Feels Safe at Home: Yes Safety Concerns: Feels Safe At This Time Smoking Status: Current every day smoker Tobacco Type: cigarettes ; Cigarettes Per Day: 20 ; Hx Alcohol Use: Yes Alcohol type: beer Hx Substance Use: No Review of Systems Review of Systems: All systems reviewed & are unremarkable except as noted in HPI & below Physical Exam Constitutional: no acute distress Neck: trachea midline Respiratory: normal respiratory effort, lungs clear to auscultation Cardiovascular: Rate/Rhythm: regular rate and regular rhythm Gastrointestinal (Abdomen): normal bowel sounds, soft, nontender, no hepatosplenomegaly Skin: no rashes, warm and dry Lymphatic: no cervical lymphadenopathy Results & Data Vital Signs (Past 12 Hours) Vital Signs Temp Pulse Pulse Resp BP BP Pulse Ox 06/29/19 11:32 36.8 C 72 19 165/108 H 97 06/29/19 07:34 36.8 C 69 16 125/73 91 06/29/19 07:22 69 06/29/19 03:00 36.8 C 85 18 122/78 93 06/29/19 00:00 85 Laboratory Results 06/29/19 06/29/19 06/29/19 Range/Units 07:25 06:16 06:16 WBC 8.61 (4.8-10.8) K/uL RBC 5.30 (4.7-6.1) M/uL Hgb 16.2 (14.0-18.0) g/dL Hct 47.6 (42-52) % MCV 89.8 (80-100) fL MCH 30.6 (25-34) pg MCHC 34.0 (32-36) g/dL RDW Std Deviation 45.6 (36.4-46.3) fL RDW Coeff of Anna 13.9 (11.5-14.5) % Plt Count 221 (130-400) K/uL MPV 10.3 (7.4-10.4) fL Immature Gran % (Auto) 0.1 % Neut % (Auto) 54.2 % Lymph % (Auto) 30.8 % [place] % (Auto) 11.3 % Eos % (Auto) 3.1 % Baso % (Auto) 0.5 % Immature Gran # (Auto) 0.01 (0.00-0.02) K/uL Neut # (Auto) 4.67 (1.4-6.5) K/uL Lymph # (Auto) 2.65 (1.2-3.4) K/uL [place] # (Auto) 0.97 H (0.11-0.59) K/uL Eos # (Auto) 0.27 (0-0.5) K/uL Baso # (Auto) 0.04 (0-0.2) K/uL PT (9.0-12.0) Seconds INR (0.9-1.1) Sodium 138 (136-145) mmol/L Potassium 4.1 (3.5-5.1) mmol/L Chloride 107 (98-107) mmol/L Carbon Dioxide 24 (21-32) mmol/L Anion Gap 7.0 (3-11) BUN 17 (7-18) mg/dl Creatinine 1.09 (0.6-1.4) mg/dl Est Cr Clr Drug Dosing 86.0 ml/min Est GFR ( Amer) 84.5 Est GFR (Non-Af Amer) 72.9 BUN/Creatinine Ratio 15.1 (10-20) Glucose 117 H (70-99) mg/dl POC Glucose (70-99) Calcium 8.5 (8.5-10.1) mg/dl Total Bilirubin 1.5 H (0.2-1) mg/dl AST 187 H (15-37) U/L ALT 449 H (12-78) U/L Alkaline Phosphatase 200 H (45-117) U/L Total Protein 7.3 (6.4-8.2) gm/dl Albumin 3.5 (3.4-5.0) gm/dl Globulin 3.8 (2.5-4.0) gm/dl Albumin/Globulin Ratio 0.9 (0.9-2) Acetaminophen (10-30) ug/ml Lyme Disease IgG Ab (Negative) Lyme Disease IgM Ab (Negative) Hepatitis A IgM Ab Hep Bs Antigen (Neg) Hep B Core IgM Ab Hepatitis C Antibody (Neg) 06/29/19 06/28/19 06/28/19 Range/Units 06:03 20:17 16:42 WBC (4.8-10.8) K/uL RBC (4.7-6.1) M/uL Hgb (14.0-18.0) g/dL Hct (42-52) % MCV (80-100) fL MCH (25-34) pg MCHC (32-36) g/dL RDW Std Deviation (36.4-46.3) fL RDW Coeff of Anna (11.5-14.5) % Plt Count (130-400) K/uL MPV (7.4-10.4) fL Immature Gran % (Auto) % Neut % (Auto) % Lymph % (Auto) % [place] % (Auto) % Eos % (Auto) % Baso % (Auto) % Immature Gran # (Auto) (0.00-0.02) K/uL Neut # (Auto) (1.4-6.5) K/uL Lymph # (Auto) (1.2-3.4) K/uL [place] # (Auto) (0.11-0.59) K/uL Eos # (Auto) (0-0.5) K/uL Baso # (Auto) (0-0.2) K/uL PT (9.0-12.0) Seconds INR (0.9-1.1) Sodium (136-145) mmol/L Potassium (3.5-5.1) mmol/L Chloride (98-107) mmol/L Carbon Dioxide (21-32) mmol/L Anion Gap (3-11) BUN (7-18) mg/dl Creatinine (0.6-1.4) mg/dl Est Cr Clr Drug Dosing ml/min Est GFR ( Amer) Est GFR (Non-Af Amer) BUN/Creatinine Ratio (10-20) Glucose (70-99) mg/dl POC Glucose 121 H 101 H 105 H (70-99) Calcium (8.5-10.1) mg/dl Total Bilirubin (0.2-1) mg/dl AST (15-37) U/L ALT (12-78) U/L Alkaline Phosphatase (45-117) U/L Total Protein (6.4-8.2) gm/dl Albumin (3.4-5.0) gm/dl Globulin (2.5-4.0) gm/dl Albumin/Globulin Ratio (0.9-2) Acetaminophen (10-30) ug/ml Lyme Disease IgG Ab (Negative) Lyme Disease IgM Ab (Negative) Hepatitis A IgM Ab Hep Bs Antigen (Neg) Hep B Core IgM Ab Hepatitis C Antibody (Neg) 06/28/19 06/28/19 06/28/19 Range/Units 14:21 14:21 14:21 WBC (4.8-10.8) K/uL RBC (4.7-6.1) M/uL Hgb (14.0-18.0) g/dL Hct (42-52) % MCV (80-100) fL MCH (25-34) pg MCHC (32-36) g/dL RDW Std Deviation (36.4-46.3) fL RDW Coeff of Anna (11.5-14.5) % Plt Count (130-400) K/uL MPV (7.4-10.4) fL Immature Gran % (Auto) % Neut % (Auto) % Lymph % (Auto) % [place] % (Auto) % Eos % (Auto) % Baso % (Auto) % Immature Gran # (Auto) (0.00-0.02) K/uL Neut # (Auto) (1.4-6.5) K/uL Lymph # (Auto) (1.2-3.4) K/uL [place] # (Auto) (0.11-0.59) K/uL Eos # (Auto) (0-0.5) K/uL Baso # (Auto) (0-0.2) K/uL PT 10.1 (9.0-12.0) Seconds INR 1.0 (0.9-1.1) Sodium (136-145) mmol/L Potassium (3.5-5.1) mmol/L Chloride (98-107) mmol/L Carbon Dioxide (21-32) mmol/L Anion Gap (3-11) BUN (7-18) mg/dl Creatinine (0.6-1.4) mg/dl Est Cr Clr Drug Dosing ml/min Est GFR ( Amer) Est GFR (Non-Af Amer) BUN/Creatinine Ratio (10-20) Glucose (70-99) mg/dl POC Glucose (70-99) Calcium (8.5-10.1) mg/dl Total Bilirubin (0.2-1) mg/dl AST (15-37) U/L ALT (12-78) U/L Alkaline Phosphatase (45-117) U/L Total Protein (6.4-8.2) gm/dl Albumin (3.4-5.0) gm/dl Globulin (2.5-4.0) gm/dl Albumin/Globulin Ratio (0.9-2) Acetaminophen < 2 L (10-30) ug/ml Lyme Disease IgG Ab Negative (Negative) Lyme Disease IgM Ab Negative (Negative) Hepatitis A IgM Ab Hep Bs Antigen (Neg) Hep B Core IgM Ab Hepatitis C Antibody (Neg) 06/28/19 06/28/19 06/28/19 Range/Units 14:21 14:21 14:21 WBC (4.8-10.8) K/uL RBC (4.7-6.1) M/uL Hgb (14.0-18.0) g/dL Hct (42-52) % MCV (80-100) fL MCH (25-34) pg MCHC (32-36) g/dL RDW Std Deviation (36.4-46.3) fL RDW Coeff of Anna (11.5-14.5) % Plt Count (130-400) K/uL MPV (7.4-10.4) fL Immature Gran % (Auto) % Neut % (Auto) % Lymph % (Auto) % [place] % (Auto) % Eos % (Auto) % Baso % (Auto) % Immature Gran # (Auto) (0.00-0.02) K/uL Neut # (Auto) (1.4-6.5) K/uL Lymph # (Auto) (1.2-3.4) K/uL [place] # (Auto) (0.11-0.59) K/uL Eos # (Auto) (0-0.5) K/uL Baso # (Auto) (0-0.2) K/uL PT (9.0-12.0) Seconds INR (0.9-1.1) Sodium 138 (136-145) mmol/L Potassium 4.4 (3.5-5.1) mmol/L Chloride 107 (98-107) mmol/L Carbon Dioxide 23 (21-32) mmol/L Anion Gap 9.0 (3-11) BUN 17 (7-18) mg/dl Creatinine 1.04 (0.6-1.4) mg/dl Est Cr Clr Drug Dosing 90.6 ml/min Est GFR ( Amer) 89.4 Est GFR (Non-Af Amer) 77.1 BUN/Creatinine Ratio 16.5 (10-20) Glucose 109 H (70-99) mg/dl POC Glucose (70-99) Calcium 9.1 (8.5-10.1) mg/dl Total Bilirubin 1.9 H D (0.2-1) mg/dl AST 237 H (15-37) U/L ALT 312 H (12-78) U/L Alkaline Phosphatase 169 H (45-117) U/L Total Protein 7.6 (6.4-8.2) gm/dl Albumin 4.0 (3.4-5.0) gm/dl Globulin 3.6 (2.5-4.0) gm/dl Albumin/Globulin Ratio 1.1 (0.9-2) Acetaminophen (10-30) ug/ml Lyme Disease IgG Ab (Negative) Lyme Disease IgM Ab (Negative) Hepatitis A IgM Ab Pending Hep Bs Antigen Neg (Neg) Hep B Core IgM Ab Pending Hepatitis C Antibody Neg (Neg) Diagnostic Findings MRCP CLINICAL HISTORY: Increasing bilirubin, CBD dilatation. Right upper quadrant pain. TECHNIQUE: Utilizing a 1.5 Betina magnet and dedicated coil, multiplanar, multiecho imaging of the upper abdomen was performed utilizing heavily T2 weighted pulsing sequences without IV contrast. COMPARISON STUDY: Right upper quadrant ultrasound June 28, 2019. FINDINGS: There is no intra or extrahepatic biliary ductal dilatation. The 3-D MRCP sequence is mildly compromised by motion artifact. There are suspected distal common bile duct calculi that measure up to 7 mm. There are numerous gallstones within the gallbladder. There is no evidence for acute cholecystitis on this exam. Course and caliber of the main pancreatic duct is normal. Fatty infiltration of the liver is better depicted on ultrasound performed earlier today. No hepatic lesions are identified on this unenhanced study. Unenhanced images of the spleen and right adrenal gland are unremarkable. A 2.4 cm left adrenal nodule is present. Note is made of mild right hydronephrosis due to a large right renal pelvis calculus which is suboptimally assessed by MRI. This measures approximately 2.6 x 1.5 cm. There is no left hydronephrosis. No ascites is present. No abdominal lymphadenopathy is noted. A splenule is noted. IMPRESSION: 1. Multiple suspected distal common bile duct calculi which measure up to ap proximately 7 mm. No biliary ductal dilatation. 2. Cholelithiasis. 3. Large right renal pelvis calculus, measuring approximately 2.6 x 1.5 cm, with mild right hydronephrosis. The calculus could be better assessed by CT. 4. Indeterminate 2.4 cm left adrenal nodule.
[2019-06-29] MEDS ORDERED: fentaNYL citrate 100 MCG/2 ML VIAL ONE ×3 (12:11→13:31)
[2019-06-29] MEDS ORDERED: MIDAZOLAM HCL 1 MG/ML 2ML VIAL ONE (12:11)
[2019-06-29] MEDS ORDERED: INDOMETHACIN 50 MG SUPP PR STA (12:13)
[2019-06-29] MEDS ORDERED: LIDOCAINE HCL 2% 2 ML VIAL/AMP(20MG/ML) INFIL ONE (12:17)
[2019-06-29] MEDS ORDERED: PROPOFOL IV EMULSION 10 MG/ML 20 ML VIAL IV ONE (12:17)
[2019-06-29] MEDS ORDERED: ONDANSETRON INJ 2 MG/ML 2 ML VIAL ONE (12:17)
[2019-06-29] MEDS ORDERED: ROCURONIUM BROMIDE 10 MG/ML 5 ML VIAL ONE ×2 (12:17→13:13)
[2019-06-29] MEDS ORDERED: BUPIVACAINE 0.5 % 5 MG/1 ML MPF 30ML VIAL ONE (12:39)
[2019-06-29] MEDS ORDERED: HEPARIN (PORCINE) 1000 UNIT/ML 10 ML (CATH LAB USE ONLY) ONE (12:39)
[2019-06-29] MEDS ORDERED: CEFAZOLIN 250 MG/ML 1 GM VIAL ONE ×2 (12:39→13:26)
--- NOTE | 2019-06-29 12:53 | Post Operative Brief Note ---
Immediate Post Op Note v1 Date of Surgery June 29, 2019 Pre & Post Diagnosis Operation Date: 06/29/19 13:00 Pre-Op Diagnosis: Common bile duct stone. Post-Op Diagnosis: Common bile duct stone. I identified the patient and participated in the time-out.: Yes Procedure Operation Date: 06/29/19 13:00 Actual Procedures p Endoscopic retrograde cholangiopancreatographyl, stone removal and pancreatic stent placemnt - Jose Dominguez Surgeon Jose Dominguez Street Flusher Driver none Estimated Blood Loss 0 Findings Consistent with Post-Op Diagnosis
--- NOTE | 2019-06-29 12:58 | GI REPORT ---
Patient Name: Dave Petty Procedure Date: 06/29/2019 12:10 PM Date of : 1960 Admit Type: Inpatient Age: 59 Gender: Male Attending MD: Jose Dominguez DO Procedure: ERCP Providers: Jose Dominguez DO Referring MD: Zhen Oliver Md, Charly Chisholm MD Indications: Abdominal pain of suspected biliary origin, Abnormal MRCP, For therapy of bile duct stone(s) Medicines: General Anesthesia Complications: No immediate complications. Estimated blood loss: Minimal. Estimated Blood Loss: Estimated blood loss was minimal. Procedure: Pre-Anesthesia Assessment: - Prior to the procedure, a History and Physical was performed, and patient medications, allergies and sensitivities were reviewed. The patient's tolerance of previous anesthesia was reviewed. - The risks and benefits of the procedure and the sedation options and risks were discussed with the patient. All questions were answered and informed consent was obtained. - Patient identification and proposed procedure were verified prior to the procedure by the physician, the nurse and the quality control supervisor. The procedure was verified in the procedure room. - Pre-procedure physical examination revealed no contraindications to sedation. - ASA Grade Assessment: II - A patient with mild systemic disease. - After reviewing the risks and benefits, the patient was deemed in satisfactory condition to undergo the procedure. - The anesthesia plan was to use general anesthesia. - Immediately prior to administration of medications, the patient was re-assessed for adequacy to receive sedatives. - The heart rate, respiratory rate, oxygen saturations, blood pressure, adequacy of pulmonary ventilation, and response to care were monitored throughout the procedure. - The physical status of the patient was re-assessed after the procedure. After obtaining informed consent, the scope was passed under direct vision. Throughout the procedure, the patient's blood pressure, pulse, and oxygen saturations were monitored continuously. The scope was introduced through the mouth, and advanced to the duodenum and used to inject contrast into the bile duct. The ERCP was accomplished without difficulty. The patient tolerated the procedure well. Findings: The hockey scout film was normal. The esophagus was successfully intubated under direct vision without detailed examination of the pharynx, larynx, and associated structures, and upper GI tract. The upper GI tract was grossly normal. The major papilla was normal. The ventral pancreatic duct was inadvertently cannulated with the short-nosed traction sphincterotome and 0.03 in Angled Acrobat 2 guidewire without any complications. The wire was left in place to aid in biliary cannulation (double wire technique) The bile duct was deeply cannulated with the short-nosed traction sphincterotome and guidewire. Contrast was injected. I personally interpreted the bile duct images. Contrast extended to the entire biliary tree. The main bile duct was moderately dilated, with a stone causing an obstruction. The largest diameter was 12 mm. Biliary sphincterotomy was made with a monofilament Fusion OMNI sphincterotome using ERBE electrocautery. There was no post-sphincterotomy bleeding. To discover objects, the biliary tree was swept with a 12 mm balloon and 15 mm balloon starting at the bifurcation. Sludge was swept from the duct. A few stones were removed. No stones remained. One 5 Fr by 5 cm pancreatic stent with a full external pigtail and no internal flaps was placed 5 cm into the ventral pancreatic duct. Clear fluid flowed through the stent. The stent was in good position. The endoscope was withdrawn from the patient. Indomethacin 100 mg was given via suppository to decrease the risk of post-ERCP pancreatitis (PEP). Impression: - The major papilla appeared normal. - The entire main bile duct was moderately dilated, with a stone causing an obstruction. - Choledocholithiasis was found. Complete removal was accomplished by biliary sphincterotomy and balloon extraction. - One pancreatic stent was placed into the ventral pancreatic duct. - Indomethacin given to decrease risk of post-ERCP pancreatitis. Recommendation: - Avoid aspirin and nonsteroidal anti-inflammatory medicines for 1 week. - Clear liquid diet today. - Observe patient's clinical course following today's ERCP with therapeutic intervention. - Perform a flat plate abdominal x-ray in 1 month to ensure passage of the stent (otherwise patient need an EGD for removal). Jose Dominguez D.O. Jose Dominguez, 06/29/2019 12:58:27 PM This report has been signed electronically. Note Initiated On: 06/29/2019 12:10 PM Number of Addenda: 0 I attest to the content of the Intraoperative Record and orders documented therein, exceptions below {[id number]}
[2019-06-29] MEDS ORDERED: ePHEDrine sulfate 50 MG/ML AMP ONE (13:02)
--- NOTE | 2019-06-29 13:15 | Fluoroscopy Report ---
[place] ERCP biliary ductal HISTORY: 59 years-old Male ERCP common bile duct dilation with choledocholithiasis COMPARISON: MRCP 06/28/2019 TECHNIQUE: 3 spot fluoroscopic images of the abdominal right upper quadrant were obtained utilizing 3 2.4 seconds fluoroscopy time FINDINGS: Endoscope noted within the duodenum. Cannulation of the common bile duct. Contrast injected into the common bile duct demonstrates distal filling defects suggestive of air bubbles versus choledocholithi asis. Contrast opacified cystic duct. No contrast extravasation. IMPRESSION: Fluoroscopic assistance as above. Please see procedural report for further details. The above report was generated using voice recognition software. It may contain grammatical, syntax o r spelling errors. Electronically signed by: Chuck Adorno M.D. 06/29/2019 1:14 PM
[2019-06-29] MEDS ORDERED: GLYCOPYRROLATE 0.2 MG/ML VIAL ONE (13:51)
[2019-06-29] MEDS ORDERED: NEOSTIGMINE METHYLSULFATE 5 MG/5 ML SYR ONE (13:51)
--- NOTE | 2019-06-29 14:27 | Post Operative Brief Note ---
Immediate Post Op Note v1 Date of Surgery June 29, 2019 Pre & Post Diagnosis Operation Date: 06/29/19 13:00 Pre-Op Diagnosis: Cholelithiasis, history of common bile duct stone. Post-Op Diagnosis: Cholelithiasis, history of common bile duct stone. I identified the patient and participated in the time-out.: Yes Procedure Operation Date: 06/29/19 13:00 Actual Procedures Laparoscopic Cholecystectomy(Not Applicable) - Charly Chisholm MD Surgeon Charly Chisholm MD Sheep Farm Worker none Estimated Blood Loss 5 (0 mls for ERCP.) Findings Consistent with Post-Op Diagnosis Specimens Gallbladder and contents Anesthesia Type General Complications none
--- NOTE | 2019-06-29 15:31 | Anesthesiology Progress Note ---
Date of Service June 29, 2019 Anesthesia Post Procedure Vital Signs Vital Signs: Temp Pulse Pulse Resp BP BP Pulse Ox 06/29/19 15:05 65 16 140/95 96 06/29/19 14:59 60 16 152/86 H 94 06/29/19 14:48 97.3 F L 64 18 125/71 95 06/29/19 14:47 96.8 F L 64 18 155/89 H 96 06/29/19 14:35 106 H 16 118/73 98 06/29/19 11:32 98.2 F 72 19 165/108 H 97 06/29/19 07:34 98.2 F 69 16 125/73 91 06/29/19 07:22 69 06/29/19 03:00 98.2 F 85 18 122/78 93 06/29/19 00:00 85 06/28/19 23:00 97.5 F L 80 20 145/90 H 95 06/28/19 19:01 98.2 F 83 19 158/90 H 95 Transfer of Care Handoff Completed per policy Notes Mental Status: alert / awake / arousable and participated in evaluation Patient Amnestic to Procedure: Yes Nausea / Vomiting: adequately controlled Pain: adequately controlled Airway Patency, RR, SpO2: stable & adequate BP & HR: stable & adequate Hydration State: stable & adequate Anesthetic Complications: no major complications apparent and Pt Satisfied with anesthetic care
[2019-06-29] MEDS: OXYCODONE/ACETAMINOPHEN 5mg/325mg TAB PO PRN ×2 (17:50→23:39)
--- NOTE | 2019-06-29 18:21 | Hospitalist Progress Note ---
Date of Service June 29, 2019 Assessment & Plan (1) Cholelithiasis with choledocholithiasis: with obstruction Appreciate GI management with ERCP. CMP + lipase in AM. Abdo XR in 1 month to check passage of stent, otherwise will need EGD removal of stent. No aspirin or NSAIDs for 1 week. Appreciate surgery management with cholecystectomy (patient very appreciative both could be performed today). Hopefully can be discharged home tomorrow as long as labs better and no significant pain (2) Diabetes: Stopped oral meds and continue insulin sliding scale alone. BSG well controlled since NPO No aspirin for 1 week (3) Hepatic steatosis: Follow up with PCP. (4) Hyperlipidemia: Continue home dose pravastatin. LDL 100. (5) DVT prophylaxis: Hold lovenox post surgery for 24 hours. If staying past tomorrow will restart. Subjective Patient seen pre and post ERCP/cholecystectomy. In AM: Afebrile overnight. No recurrence of abdominal pain. In PM: Managed to eat without significant pain after surgery. Sore around laparoscopic surgical sites but otherwise not in significant pain. Otherwise feels well. No chest pain or shortness of breath. Review of Systems Review of Systems: All systems reviewed & are unremarkable except as noted in HPI & below Physical Exam Constitutional: well developed and + obese; no acute distress Eyes: + anicteric sclerae; normal pupil size ENMT: external ear and nose normal, oropharynx normal Neck: trachea midline and + thick neck Respiratory: normal respiratory effort, lungs clear to auscultation Cardiovascular: RRR, no murmur, no edema Gastrointestinal (Abdomen): normal bowel sounds, soft, nontender, no hepatosplenomegaly Musculoskeletal: no cyanosis or clubbing, extremities motor strength 5/5 Skin: no rashes, warm and dry Neurologic: awake; no focal motor deficits and not confused Speech / Cognition: normal speech Motor/Sensory: no sensory deficit Psychiatric: A+Ox3, euthymic affect Results & Data Vital Signs (Past 12 Hours) Vital Signs Temp Pulse Pulse Resp BP BP Pulse Ox 06/29/19 17:35 97.7 F 95 H 16 149/88 H 94 06/29/19 17:02 98.1 F 97 H 18 158/90 H 97 06/29/19 16:33 97.7 F 71 16 136/79 97 06/29/19 16:00 97.5 F L 84 15 147/88 H 95 06/29/19 15:50 97.7 F 60 16 147/83 H 95 06/29/19 15:05 65 16 140/95 96 06/29/19 14:59 60 16 152/86 H 94 06/29/19 14:48 97.3 F L 64 18 125/71 95 06/29/19 14:47 96.8 F L 64 18 155/89 H 96 06/29/19 14:35 106 H 16 118/73 98 06/29/19 11:32 98.2 F 72 19 165/108 H 97 06/29/19 07:34 98.2 F 69 16 125/73 91 06/29/19 07:22 69 PG Care Time/CCT Total # of Minutes Spent Total Time Spent with Patient: Total time spent is greater than 50% in coordination of care (as documented) at patient's floor/unit and/or counseling patient: (1) Diabetes Diabetes mellitus type: type 2 Diabetes mellitus superintendent terminal insulin use: without [facility] use Diabetes mellitus complication status: without complication Qualified Code(s): E11.9 - Type 2 diabetes mellitus without complications (2) Hyperlipidemia Hyperlipidemia type: unspecified Qualified Code(s): E78.5 - Hyperlipidemia, unspecified
[2019-06-29] MEDS ORDERED: MoRPHine SULFATE 2 MG/ML CARP IV PRN (18:27)
[2019-06-29] MEDS ORDERED: OXYCODONE HCL IR 5 MG TAB (IMMEDIATE RELEASE) PO PRN (18:27)
[2019-06-29] MEDS: PRAVASTATIN SOD 40 MG TAB PO SCH (20:28)
[2019-06-30] MEDS: LACTATED RINGER'S 1,000 ML IV SCH (06:07)
[2019-06-30] MEDS: OXYCODONE/ACETAMINOPHEN 5mg/325mg TAB PO PRN ×3 (06:10→20:42)
[2019-06-30 06:16] LABS: Basophils # (auto) 0.03 K/uL (0-0.2); Basophils % (auto) 0.3 %; Eosinophils # (auto) 0.29 K/uL (0-0.5); Eosinophils % (auto) 2.7 %; Hematocrit (blood only) 45.1 % (42-52); Hemoglobin 15.1 g/dL (14.0-18.0); Immature Granulocytes # (auto) 0.02 K/uL (0.00-0.02); Immature Granulocytes % (auto) 0.2 %; Lymphocytes # (auto) 3.47 K/uL (1.2-3.4); Lymphocytes % (auto) 31.9 %; Mean Corpuscular Hemoglobin 30.7 pg (25-34); Mean Corpuscular Hgb Conc 33.5 g/dL (32-36); Mean Corpuscular Volume 91.7 fL (80-100); Mean Platelet Volume 10.7 fL (7.4-10.4); Monocytes # (auto) 0.93 K/uL (0.11-0.59); Monocytes % (auto) 8.5 %; Neutrophils # (auto) 6.14 K/uL (1.4-6.5); Neutrophils % (auto) 56.4 %; Platelet Count 210 K/uL (130-400); RDW Coefficient of Variation 13.8 % (11.5-14.5); RDW Standard Deviation 46.4 fL (36.4-46.3); Red Blood Count 4.92 M/uL (4.7-6.1); White Blood Count 10.88 K/uL (4.8-10.8)
[2019-06-30 06:57] LABS: Albumin Level 3.5 gm/dl (3.4-5.0); BUN Creatinine Ratio 17.6 (10-20); Calcium 8.5 mg/dl (8.5-10.1); Est GFR (African American) 91.5; Potassium 4.1 mmol/L (3.5-5.1)
[2019-06-30 07:00] LABS: Bilirubin,Total 0.9 mg/dl (0.2-1); Globulin 3.5 gm/dl (2.5-4.0)
--- NOTE | 2019-06-30 07:38 | Gastroenterology Progress Note ---
Date of Service June 30, 2019 Assessment & Plan (1) Cholelithiasis with choledocholithiasis: Patient is status post ERCP and cholecystectomy for complications of choledocholithiasis. He appears to be improving well today. We did place a pancreatic stent and he will need to follow-up abdominal x-ray performed by his primary care provider in [place] in 2 to 4 weeks. The patient otherwise appears to be well from our standpoint. He does admit to some constipation which could be related to medication use. I would suggest addition of Colace 200 mg/day in addition to MiraLAX 17 g/day while an inpatient. Recommendations Consider Colace 200 mg/day Consider MiraLAX 17 g/day Abdominal x-ray to check for pancreatic stent migration in 2 to 4 weeks Please call with any questions or concerns Subjective The patient underwent ERCP and cholecystectomy on Monday. He notes that he is feeling improved although he does have some bloating which he attributes to constipation. Review of Systems Constitutional: no sweats and no malaise Respiratory: no change in sputum and no hemoptysis Cardiovascular: no chest pain with activity and no dyspnea at rest Gastrointestinal: + bloating and + constipation; no early satiety, no nausea, no vomiting and no hematemesis Physical Exam Constitutional: well developed and well nourished; no acute distress and not ill appearing Eyes: PERRL, conjunctivae normal, anicteric sclerae Neck: trachea midline, no thyromegaly Respiratory: normal respiratory effort; no respiratory distress Cardiovascular: RRR, no murmur, no edema Gastrointestinal (Abdomen): Percussion/Palpation: abdomen soft; abdomen nontender and abdomen not rigid Results & Data Vital Signs (Past 12 Hours) Vital Signs Temp Pulse Resp BP Pulse Ox 06/30/19 03:05 36.6 C 71 16 117/73 93 06/29/19 23:30 36.8 C 78 16 137/83 95 Laboratory Results Laboratory Results - last 24 hr 06/27/19 06/29/19 06/29/19 20:04 15:07 20:45 WBC RBC Hgb Hct MCV MCH MCHC RDW Std Deviation RDW Coeff of Anna Plt Count MPV Immature Gran % (Auto) Neut % (Auto) Lymph % (Auto) Stone % (Auto) Eos % (Auto) Baso % (Auto) Immature Gran # (Auto) Neut # (Auto) Lymph # (Auto) Stone # (Auto) Eos # (Auto) Baso # (Auto) Sodium Potassium Chloride Carbon Dioxide Anion Gap BUN Creatinine Est Cr Clr Drug Dosing Est GFR ( Amer) Est GFR (Non-Af Amer) BUN/Creatinine Ratio Glucose POC Glucose 128 H 128 H 113 H Calcium Total Bilirubin AST ALT Alkaline Phosphatase Total Protein Albumin Globulin Albumin/Globulin Ratio Lipase 06/30/19 06/30/19 05:21 05:21 WBC 10.88 H RBC 4.92 Hgb 15.1 Hct 45.1 MCV 91.7 MCH 30.7 MCHC 33.5 RDW Std Deviation 46.4 H RDW Coeff of Anna 13.8 Plt Count 210 MPV 10.7 H Immature Gran % (Auto) 0.2 Neut % (Auto) 56.4 Lymph % (Auto) 31.9 Stone % (Auto) 8.5 Eos % (Auto) 2.7 Baso % (Auto) 0.3 Immature Gran # (Auto) 0.02 Neut # (Auto) 6.14 Lymph # (Auto) 3.47 H Stone # (Auto) 0.93 H Eos # (Auto) 0.29 Baso # (Auto) 0.03 Sodium 138 Potassium 4.1 Chloride 106 Carbon Dioxide 24 Anion Gap 8.0 BUN 18 Creatinine 1.02 Est Cr Clr Drug Dosing 92.0 Est GFR ( Amer) 91.5 Est GFR (Non-Af Amer) 79.0 BUN/Creatinine Ratio 17.6 Glucose 92 POC Glucose Calcium 8.5 Total Bilirubin 0.9 D AST 55 H ALT 265 H Alkaline Phosphatase 167 H Total Protein 7.0 Albumin 3.5 Globulin 3.5 Albumin/Globulin Ratio 1.0 Lipase 536 H
[2019-06-30] MEDS ORDERED: DOCUSATE SODIUM 100 MG CAP PO PRN (08:05)
[2019-06-30] MEDS ORDERED: POLYETHYLENE (MIRALAX) 17 GM PACK PO PRN (08:05)
--- NOTE | 2019-06-30 09:13 | Surgery Progress Note ---
Date of Service June 30, 2019 Assessment & Plan (1) Cholelithiasis with choledocholithiasis: POD # 1 s/p ERCP with pancreatic stent and laparoscopic cholecystectomy -vitals stable, afebrile - pain controlled - tolerating diet - t bili and lfts improved Plan: Continue PO Percocet prn pain Continue heart healthy diet december d/c iv fluids ambulate doing well from surgical standpoint, discharge when okay with internal medicine and GI team Dr. Chisholm has seen and examined pt, agrees with above Subjective feeling good abdominal pain at incisions controlled no n/v, tolerating regular diet ambulating and urinating Physical Exam Constitutional: WD/WN, vitals as above no acute distress Gastrointestinal (Abdomen): Inspection/Auscultation: abdomen not distended Percussion/Palpation: abdomen soft; abdomen nontender, no guarding and abdomen not rigid Skin: no rashes, warm and dry + incision (incisions covered with dressings, dry) Psychiatric: A+Ox3, euthymic affect Results & Data Vital Signs (Past 12 Hours) Vital Signs Temp Pulse Resp BP Pulse Ox 06/30/19 08:10 36.9 C 64 18 134/82 93 06/30/19 03:05 36.6 C 71 16 117/73 93 06/29/19 23:30 36.8 C 78 16 137/83 95 Laboratory Results 06/30/19 06/30/19 06/29/19 Range/Units 05:21 05:21 20:45 WBC 10.88 H (4.8-10.8) K/uL RBC 4.92 (4.7-6.1) M/uL Hgb 15.1 (14.0-18.0) g/dL Hct 45.1 (42-52) % MCV 91.7 (80-100) fL MCH 30.7 (25-34) pg MCHC 33.5 (32-36) g/dL RDW Std Deviation 46.4 H (36.4-46.3) fL RDW Coeff of Anna 13.8 (11.5-14.5) % Plt Count 210 (130-400) K/uL MPV 10.7 H (7.4-10.4) fL Immature Gran % (Auto) 0.2 % Neut % (Auto) 56.4 % Lymph % (Auto) 31.9 % [place] % (Auto) 8.5 % Eos % (Auto) 2.7 % Baso % (Auto) 0.3 % Immature Gran # (Auto) 0.02 (0.00-0.02) K/uL Neut # (Auto) 6.14 (1.4-6.5) K/uL Lymph # (Auto) 3.47 H (1.2-3.4) K/uL [place] # (Auto) 0.93 H (0.11-0.59) K/uL Eos # (Auto) 0.29 (0-0.5) K/uL Baso # (Auto) 0.03 (0-0.2) K/uL Sodium 138 (136-145) mmol/L Potassium 4.1 (3.5-5.1) mmol/L Chloride 106 (98-107) mmol/L Carbon Dioxide 24 (21-32) mmol/L Anion Gap 8.0 (3-11) BUN 18 (7-18) mg/dl Creatinine 1.02 (0.6-1.4) mg/dl Est Cr Clr Drug Dosing 92.0 ml/min Est GFR ( Amer) 91.5 Est GFR (Non-Af Amer) 79.0 BUN/Creatinine Ratio 17.6 (10-20) Glucose 92 (70-99) mg/dl POC Glucose 113 H (70-99) Calcium 8.5 (8.5-10.1) mg/dl Total Bilirubin 0.9 D (0.2-1) mg/dl AST 55 H (15-37) U/L ALT 265 H (12-78) U/L Alkaline Phosphatase 167 H (45-117) U/L Total Protein 7.0 (6.4-8.2) gm/dl Albumin 3.5 (3.4-5.0) gm/dl Globulin 3.5 (2.5-4.0) gm/dl Albumin/Globulin Ratio 1.0 (0.9-2) Lipase 536 H (73-393) U/L 06/29/19 06/27/19 Range/Units 15:07 20:04 WBC (4.8-10.8) K/uL RBC (4.7-6.1) M/uL Hgb (14.0-18.0) g/dL Hct (42-52) % MCV (80-100) fL MCH (25-34) pg MCHC (32-36) g/dL RDW Std Deviation (36.4-46.3) fL RDW Coeff of Anna (11.5-14.5) % Plt Count (130-400) K/uL MPV (7.4-10.4) fL Immature Gran % (Auto) % Neut % (Auto) % Lymph % (Auto) % [place] % (Auto) % Eos % (Auto) % Baso % (Auto) % Immature Gran # (Auto) (0.00-0.02) K/uL Neut # (Auto) (1.4-6.5) K/uL Lymph # (Auto) (1.2-3.4) K/uL [place] # (Auto) (0.11-0.59) K/uL Eos # (Auto) (0-0.5) K/uL Baso # (Auto) (0-0.2) K/uL Sodium (136-145) mmol/L Potassium (3.5-5.1) mmol/L Chloride (98-107) mmol/L Carbon Dioxide (21-32) mmol/L Anion Gap (3-11) BUN (7-18) mg/dl Creatinine (0.6-1.4) mg/dl Est Cr Clr Drug Dosing ml/min Est GFR ( Amer) Est GFR (Non-Af Amer) BUN/Creatinine Ratio (10-20) Glucose (70-99) mg/dl POC Glucose 128 H 128 H (70-99) Calcium (8.5-10.1) mg/dl Total Bilirubin (0.2-1) mg/dl AST (15-37) U/L ALT (12-78) U/L Alkaline Phosphatase (45-117) U/L Total Protein (6.4-8.2) gm/dl Albumin (3.4-5.0) gm/dl Globulin (2.5-4.0) gm/dl Albumin/Globulin Ratio (0.9-2) Lipase (73-393) U/L
[2019-06-30] MEDS: LISINOPRIL 5 MG TAB PO SCH (09:23)
[2019-06-30] MEDS: METFORMIN HCL ER 500 MG TABCR PO SCH ×2 (09:23→17:29)
[2019-06-30] MEDS: INSULIN ASPART 100 UNITS/ML 3 ML PEN SC SCH ×4 (09:56→20:51)
[2019-06-30] MEDS ORDERED: POLYETHYLENE (MIRALAX) 17 GM PACK PO STA (12:31)
--- NOTE | 2019-06-30 14:44 | Discharge Summary ---
Date of Service June 30, 2019 Admission HPI Per Admitting Provider 59-year-old male presented to the hospital on 27 June for evaluation of right-sided discomfort. Initially the patient was thought to have a cardiac etiology given his long history of smoking. He was initially ruled out for myocardial infarction and found to have new elevation of his liver associated enzymes. MRCP was performed yesterday evening which showed evidence of choledocholithiasis. The patient did have a significant white blood cell count elevation at the initial part of his admission which is now normalized. He denies having fevers chills sweats or Rigor's today. He does note that his abdominal pain continues and that it began several weeks ago. Discharge Data Allergies Allergy/AdvReac Type Severity Reaction Status Date / Time No Known Allergies Allergy Unverified 06/27/19 15:11 Consultations 06/27/19 16:21 ED Decision to Admit Stat 06/28/19 16:26 Consult Gastroenterology Routine 06/28/19 17:46 Consult General Surgery Routine Procedures Performed Operation Date: 06/29/19 13:00 Actual Procedures p Endoscopic retrograde cholangiopancreatography - Jose tilley Laparoscopic Cholecystectomy(Not Applicable) - Charly Chisholm MD Ordered Studies 06/28/19 14:03 US liver Routine 06/28/19 16:16 MR MRCP Routine 06/29/19 07:00 FL ERCP biliary ductal Routine Hospital Course (1) Cholelithiasis with choledocholithiasis: with obstruction Appreciate GI management with ERCP. CMP + lipase in AM. Abdo XR in 1 month to check passage of stent, otherwise will need EGD removal of stent. No aspirin or NSAIDs for 1 week. Appreciate surgery management with cholecystectomy (patient very appreciative both could be performed today). Hopefully can be discharged home tomorrow as long as labs better and no significant pain (2) Diabetes: Stopped oral meds and continue insulin sliding scale alone. BSG well controlled since NPO No aspirin for 1 week (3) Hepatic steatosis: Follow up with PCP. (4) Hyperlipidemia: Continue home dose pravastatin. LDL 100. (5) DVT prophylaxis: Hold lovenox post surgery for 24 hours. If staying past tomorrow will restart. Discharge Plan Discharge Items Patient Disposition: Home - Self-Care Reason For Visit: CP Discharge Diagnosis: Cholelithiasis and choledocholithiasis (stones gall bladder and common bile duct) causing obstruction, without acute cholecystitis Condition on Discharge: Good Activity: Per Instructions section Non-emergency contact: Primary Care Provider and Surgeon Call non-emergency contact if: your pain is not controlled, your pain is worsening, you have a fever, your temperature is above 101, your wound has increased redness, your wound has increased drainage and your wound pain has increased Follow-up/Referrals: PCP,NO [Primary Care Provider] - Diet: Carb Consistent or DM2 and Heart Healthy Addtl Attending Provider Instructions: You were admitted to [facility] from June 27 to June 30, 2019 due to an episode of right upper quadrant abdominal pain. You were subsequently diagnosed with gallstones in your gallbladder as well as common bi le duct causing obstruction. This was confirmed on ultrasound and MRCP (magnetic resonance cholangiopancreatography). You underwent ERCP (endoscopic retrograde cholangiopancreatography) on [address] Dominguez ([facility]) with stone removal and pancreatic stent placement. After this you underwent cholecystectomy (gallbladder removal) by Dr. Chisholm ([facility] general surgery). Please follow-up with your primary care provider within the next 2 weeks if you cannot follow-up locally. Recommend abdominal x-ray in 2 to 4 weeks to ensure passage of the pancreatic stent (otherwise you will need to arrange EGD for removal). No aspirin or NSAIDs (nonsteroidal anti-inflammatory drugs - any [id number] pain medication other than acetaminophen) for 2 weeks. Due to concern your pain may have been cardiac related given significant risk factors, you underwent exercise stress echocardiogram which was negative for induced ischemia. Please follow-up with your primary care physician for ongoing cardiovascular risk reduction. Post-Surgical ~Discharge Instructions Activity Recommendations: - lifting limitation: (10 pounds for 2 weeks), - exercise/sex/sports limit: (nonstrenuous for 2 weeks), - driving or machine use limit: (none for 1 week), - Shower/bathe limit: (may shower beginning tomorrow) Diet: - Resume previous diet SPECIAL CARE INSTRUCTIONS: - May shower in 24 hours. Let water run over area and pat dry. - Leave steri strips on for one week. - Call the surgeon's office with any questions or concerns - - (ex. temperature higher than 101 degrees F, excessive bleeding or pain). MEDICATIONS: - Resume previous medications unless instructed otherwise by your surgeon. - Percocet 1 every 4 hours, as needed for pain FOLLOW UP VISIT: - If not already scheduled, please call the office to schedule a two week follow-up appointment. Office number Pending Studies at Discharge: Yes (Gallbladder pathology, will be reviewed at follow up visit) Stand-Alone Forms: My [facility], Smoking Cessation Medications and DC Order Prescriptions: New oxycodone-acetaminophen 5-325 mg tablet 1 tab PO Q4H PRN (Reason: pain) Qty: 5 RF: 0 Continued pravastatin [Pravachol] 40 mg tablet 40 mg PO QPM RF: 0 lisinopril 5 mg tablet 5 mg PO DAILY RF: 0 metformin [Glucophage XR] 500 mg tablet extended release 24 hr 1,000 mg PO BID RF: 0 Jardiance 25 mg tablet 25 mg PO DAILY RF: 0 Discontinued ibuprofen 200 mg Tablet 600 mg PO Q6H PRN (Reason: Pain) RF: 0 Admission Data Admit Date/Time: 06/28/19 16:14 Attending Provider: Zhen Oliver Admit Provider: Ilan Samson Primary Care Provider: PCP,NO Other Providers: Ilan Samson ; Jose Dominguez ; Charly Chisholm
--- NOTE | 2019-06-30 15:00 | Anesthesiology Progress Note ---
Date of Service June 30, 2019 Anesthesia Post Procedure Vital Signs Vital Signs: Temp Pulse Resp BP Pulse Ox 06/30/19 11:29 36.7 C 71 20 137/74 96 06/30/19 08:10 36.9 C 64 18 134/82 93 06/30/19 03:05 36.6 C 71 16 117/73 93 06/29/19 23:30 36.8 C 78 16 137/83 95 06/29/19 19:49 36.8 C 76 16 142/70 H 90 06/29/19 18:32 36.8 C 84 16 143/82 H 97 06/29/19 17:35 36.5 C 95 H 16 149/88 H 94 06/29/19 17:02 36.7 C 97 H 18 158/90 H 97 06/29/19 16:33 36.5 C 71 16 136/79 97 06/29/19 16:00 36.4 C L 84 15 147/88 H 95 Pain Intensity Abdomen: Pain Intensity: 3 Notes Mental Status: alert / awake / arousable Patient Amnestic to Procedure: Yes Nausea / Vomiting: adequately controlled Pain: adequately controlled Airway Patency, RR, SpO2: stable & adequate BP & HR: stable & adequate Hydration State: stable & adequate Anesthetic Complications: no major complications apparent
--- NOTE | 2019-06-30 17:53 | Hospitalist Progress Note ---
Date of Service June 30, 2019 Assessment & Plan (1) Cholelithiasis with choledocholithiasis: with obstruction Appreciate GI management with ERCP. CMP + lipase in AM. Abdo XR in 1 month to check passage of stent, otherwise will need EGD removal of stent. No aspirin or NSAIDs for 1 week. Appreciate surgery management with cholecystectomy (patient very appreciative both could be performed yesterday). Plan to discharge home in morning tomorrow once someone can pick him up. (2) Diabetes: Stopped oral meds and continue insulin sliding scale alone. BSG well controlled since NPO No aspirin for 1 week (3) Hepatic steatosis: Follow up with PCP. (4) Hyperlipidemia: Continue home dose pravastatin. LDL 100. (5) DVT prophylaxis: SCDs Subjective Patient feels generally well but with a little soreness around the surgery sites. No BM since the surgery but he is passing flatus and. Unfortunately we had plan on discharge today but he called his company and no transport could be arranged on our end with social work case manager. 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 Review of Systems Review of Systems: All systems reviewed & are unremarkable except as noted in HPI & below Physical Exam Constitutional: well developed and + obese; no acute distress Eyes: + anicteric sclerae; normal pupil size ENMT: external ear and nose normal, oropharynx normal Neck: trachea midline and + thick neck Respiratory: normal respiratory effort, lungs clear to auscultation Cardiovascular: RRR, no murmur, no edema Gastrointestinal (Abdomen): Inspection/Auscultation: normal bowel sounds; abdomen not distended Percussion/Palpation: + abdomen tender (around surgical sites) and abdomen soft; no guarding and abdomen not rigid Musculoskeletal: no cyanosis or clubbing, extremities motor strength 5/5 Skin: no rashes, warm and dry Neurologic: awake; no focal motor deficits and not confused Speech / Cognition: normal speech Motor/Sensory: no sensory deficit Psychiatric: A+Ox3, euthymic affect Results & Data Vital Signs (Past 12 Hours) Vital Signs Temp Pulse Resp BP BP Pulse Ox 06/30/19 15:25 129/73 06/30/19 15:22 98.2 F 83 16 161/89 H 94 06/30/19 11:29 98.1 F 71 20 137/74 96 06/30/19 08:10 98.4 F 64 18 134/82 93 PG Care Time/CCT Total # of Minutes Spent Total Time Spent with Patient: Total time spent is greater than 50% in coordin ation of care (as documented) at patient's floor/unit and/or counseling patient: (1) Diabetes Diabetes mellitus complication status: without complication Diabetes mellitus fci insulin use: without fci use Diabetes mellitus type: type 2 Qualified Code(s): E11.9 - Type 2 diabetes mellitus without complications (2) Hyperlipidemia Hyperlipidemia type: unspecified Qualified Code(s): E78.5 - Hyperlipidemia, unspecified
[2019-06-30 20:32] LABS: Hepatitis A Antibody IgM NON-REACTIVE (NON-REACTIVE); Hepatitis B Core Antibody IgM NON-REACTIVE (NON-REACTIVE)
[2019-06-30] MEDS: PRAVASTATIN SOD 40 MG TAB PO SCH (20:42)
[2019-07-01 06:06] LABS: Albumin Level 3.7 gm/dl (3.4-5.0); BUN Creatinine Ratio 16.7 (10-20); Calcium 8.8 mg/dl (8.5-10.1); Est GFR (African American) 91.5; Potassium 4.5 mmol/L (3.5-5.1)
[2019-07-01 06:09] LABS: Bilirubin,Total 0.7 mg/dl (0.2-1); Globulin 3.7 gm/dl (2.5-4.0); Total Protein 7.4 gm/dl (6.4-8.2)
--- NOTE | 2019-07-01 07:50 | Operative Report ---
DATE OF OPERATION: 06/29/2019 PREOPERATIVE DIAGNOSES: Cholelithiasis, history of choledocholithiasis. POSTOPERATIVE DIAGNOSES: Cholelithiasis, history of choledocholithiasis. PROCEDURE: Laparoscopic cholecystectomy. SURGEON: Charly Chisholm MD. FINDINGS: The gallbladder had multiple stones within its lumen. The cystic duct was moderately dilated. The wall of the gallbladder was not thickened. The liver was of normal size and contour and the visible bowel appeared normal. TECHNIQUE: The patient had undergone an ERCP just prior to the surgery. He was positioned and then the area was prepped and draped in the usual sterile fashion. Transverse incision was made below the umbilicus, carried down through the subcutaneous tissue to the fascia which was grasped with 2 Pebbles clamps and incised between. The peritoneum was identified, incised and introducer was placed bluntly. The abdomen was then insufflated to a pressure of 15 mmHg with carbon dioxide. The upper midline, midclavicular and anterior axillary introducers were placed under direct vision through small skin incisions. Traction was placed on the gallbladder beginning at the lower portion of the infundibulum. The peritoneum overlying it was opened and peeled towards the common bile duct. The peritoneum was then divided along the lateral aspect of the neck and infundibulum of the gallbladder and then all the way up along the body. I then dissected laterally to medially working towards the medial aspect. I then was able to, with better mobility, place inferior retraction and opened the triangle of Calot and peeled connective tissue and lymphatics towards the common bile duct. That allowed me to open up the triangle of Calot and divide infundibular body attachments there. I had a nice window posteriorly and then was able to identify the cystic artery. The cystic artery was isolated, clamped twice proximally, once near the gallbladder and divided. Cystic duct again was moderately dilated. I then completed the dissection of the gallbladder off the liver such that the only attachment was the cystic duct. This was then clamped 3 times proximally and once near the gallbladder and divided. The gallbladder was then placed into an Endobag and brought out through the upper midline incision where I had to open the gallbladder and extract the stones in order to remove the gallbladder within the bag, but that was accomplished. That introducer was replaced. The liver edge was elevated. The subhepatic space was irrigated and the irrigation was removed. The gallbladder bed of the liver was inspected and there was no bleeding. The previously placed clips were intact. The subdiaphragmatic and subhepatic spaces were irrigated again and irrigation removed. The gas was allowed to escape and introducers were removed. The fascia of the umbilical and upper midline introducer sites was closed with interrupted 0 Vicryl and skin of all the incisions was closed with 4-0 Monocryl in either an interrupted or running subcuticular fashion. The skin was anesthetized with 0.5% Marcaine. The skin was cleansed, dried, benzoin placed, Steri-Strips applied. Estimated blood loss was 5 mL. Sponge, needle and instrument counts were correct prior to closure. The patient tolerated the surgical procedure without complication and was transferred to Recovery. I attest to the content of the Intraoperative Record and any orders documented therein. Any exception s are noted below.
[2019-07-01] MEDS: INSULIN ASPART 100 UNITS/ML 3 ML PEN SC SCH ×2 (08:17→13:00)
[2019-07-01] MEDS: LISINOPRIL 5 MG TAB PO SCH (08:18)
[2019-07-01] MEDS: METFORMIN HCL ER 500 MG TABCR PO SCH (08:18)
[2019-07-01 08:59] LABS: Hematocrit (blood only) 45.8 % (42-52); Hemoglobin 15.8 g/dL (14.0-18.0); Mean Corpuscular Hgb Conc 34.5 g/dL (32-36); Mean Corpuscular Volume 89.8 fL (80-100); Mean Platelet Volume 10.4 fL (7.4-10.4); Platelet Count 216 K/uL (130-400); RDW Coefficient of Variation 13.7 % (11.5-14.5); White Blood Count 10.25 K/uL (4.8-10.8)
[2019-07-01] MEDS ORDERED: POLYETHYLENE (MIRALAX) 17 GM PACK PO SCH (09:30)
[2019-07-01] MEDS ORDERED: DOCUSATE SODIUM 100 MG CAP PO SCH (09:30)
--- NOTE | 2019-07-01 09:46 | Surgery Progress Note ---
Date of Service July 01, 2019 Assessment & Plan (1) Cholelithiasis with choledocholithiasis: POD # 2 s/p ERCP with pancreatic stent and laparoscopic cholecystectomy -vitals stable, afebrile - pain controlled - tolerating diet - t bili and lfts improved Plan: Okay from surgical standpoint for discharge discharge instructions reviewed with patient Rx sent for Percocet 5/325 mg tab # 5 tabs to [facility], Pharmacy aware and patient aware 2 week f/u in surgical office if still in area will need abdominal xray in 4 weeks to see if pancreatic stent migrated per GI Off 2 weeks for work, return Monday07/15/2019, work note in discharge instructions Dr. Chisholm has seen and examined pt, agrees with above Subjective feeling good minimal abdominal pain at incisions passing gas no bowel movement yet tolerating regular diet ready to go home Physical Exam Constitutional: WD/WN, vitals as above not ill appearing Gastrointestinal (Abdomen): Inspection/Auscultation: abdomen normal to inspection and normal bowel sounds; abdomen not distended Percussion/Palpation: + abdomen tender (at incisions only) and abdomen soft; no guarding and abdomen not rigid Skin: no rashes, warm and dry + incision (incisions covered with steri strips, mild erythema surrounding incisions) erythema secondary to tape and opsite, no induration, no warmth to touch Psychiatric: A+Ox3, euthymic affect Results & Data Vital Signs (Past 12 Hours) Vital Signs Temp Pulse Pulse Resp BP BP Pulse Ox 07/01/19 07:51 36.6 C 71 13 143/87 H 96 07/01/19 05:38 36.7 C 80 16 157/93 H 92 06/30/19 22:45 37.2 C 72 16 123/69 94 Laboratory Results 07/01/19 07/01/19 07/01/19 Range/Units 08:11 05:17 05:14 WBC 10.25 (4.8-10.8) K/uL RBC 5.10 (4.7-6.1) M/uL Hgb 15.8 (14.0-18.0) g/dL Hct 45.8 (42-52) % MCV 89.8 (80-100) fL MCH 31.0 (25-34) pg MCHC 34.5 (32-36) g/dL RDW Std Deviation 45.0 (36.4-46.3) fL RDW Coeff of Anna 13.7 (11.5-14.5) % Plt Count 216 (130-400) K/uL MPV 10.4 (7.4-10.4) fL Sodium 138 (136-145) mmol/L Potassium 4.5 (3.5-5.1) mmol/L Chloride 105 (98-107) mmol/L Carbon Dioxide 25 (21-32) mmol/L Anion Gap 8.0 (3-11) BUN 17 (7-18) mg/dl Creatinine 1.02 (0.6-1.4) mg/dl Est Cr Clr Drug Dosing 92.0 ml/min Est GFR ( Amer) 91.5 Est GFR (Non-Af Amer) 79.0 BUN/Creatinine Ratio 16.7 (10-20) Glucose 113 H (70-99) mg/dl POC Glucose 118 H (70-99) Calcium 8.8 (8.5-10.1) mg/dl Total Bilirubin 0.7 (0.2-1) mg/dl AST 25 (15-37) U/L ALT 189 H (12-78) U/L Alkaline Phosphatase 155 H (45-117) U/L Total Protein 7.4 (6.4-8.2) gm/dl Albumin 3.7 (3.4-5.0) gm/dl Globulin 3.7 (2.5-4.0) gm/dl Albumin/Globulin Ratio 1.0 (0.9-2) Hepatitis A IgM Ab (NON-REACTIVE) Hep B Core IgM Ab (NON-REACTIVE) 06/30/19 06/30/19 06/30/19 Range/Units 20:36 17:25 12:26 WBC (4.8-10.8) K/uL RBC (4.7-6.1) M/uL Hgb (14.0-18.0) g/dL Hct (42-52) % MCV (80-100) fL MCH (25-34) pg MCHC (32-36) g/dL RDW Std Deviation (36.4-46.3) fL RDW Coeff of Anna (11.5-14.5) % Plt Count (130-400) K/uL MPV (7.4-10.4) fL Sodium (136-145) mmol/L Potassium (3.5-5.1) mmol/L Chloride (98-107) mmol/L Carbon Dioxide (21-32) mmol/L Anion Gap (3-11) BUN (7-18) mg/dl Creatinine (0.6-1.4) mg/dl Est Cr Clr Drug Dosing ml/min Est GFR ( Amer) Est GFR (Non-Af Amer) BUN/Creatinine Ratio (10-20) Glucose (70-99) mg/dl POC Glucose 144 H 110 H 138 H (70-99) Calcium (8.5-10.1) mg/dl Total Bilirubin (0.2-1) mg/dl AST (15-37) U/L ALT (12-78) U/L Alkaline Phosphatase (45-117) U/L Total Protein (6.4-8.2) gm/dl Albumin (3.4-5.0) gm/dl Globulin (2.5-4.0) gm/dl Albumin/Globulin Ratio (0.9-2) Hepatitis A IgM Ab (NON-REACTIVE) Hep B Core IgM Ab (NON-REACTIVE) 06/30/19 06/28/19 Range/Units 08:27 14:21 WBC (4.8-10.8) K/uL RBC (4.7-6.1) M/uL Hgb (14.0-18.0) g/dL Hct (42-52) % MCV (80-100) fL MCH (25-34) pg MCHC (32-36) g/dL RDW Std Deviation (36.4-46.3) fL RDW Coeff of Anna (11.5-14.5) % Plt Count (130-400) K/uL MPV (7.4-10.4) fL Sodium (136-145) mmol/L Potassium (3.5-5.1) mmol/L Chloride (98-107) mmol/L Carbon Dioxide (21-32) mmol/L Anion Gap (3-11) BUN (7-18) mg/dl Creatinine (0.6-1.4) mg/dl Est Cr Clr Drug Dosing ml/min Est GFR ( Amer) Est GFR (Non-Af Amer) BUN/Creatinine Ratio (10-20) Glucose (70-99) mg/dl POC Glucose 105 H (70-99) Calcium (8.5-10.1) mg/dl Total Bilirubin (0.2-1) mg/dl AST (15-37) U/L ALT (12-78) U/L Alkaline Phosphatase (45-117) U/L Total Protein (6.4-8.2) gm/dl Albumin (3.4-5.0) gm/dl Globulin (2.5-4.0) gm/dl Albumin/Globulin Ratio (0.9-2) Hepatitis A IgM Ab NON-REACTIVE (NON-REACTIVE) Hep B Core IgM Ab NON-REACTIVE (NON-REACTIVE)
--- NOTE | 2019-07-01 10:58 | XRay Report ---
XR KUB/Abdomen 1 view CLINICAL HISTORY: Abdominal distention. Possible ileus. COMPARISON STUDY: No previous studies for comparison. FINDINGS: There are surgical clips within the right upper quadrant. There is a biliary enteric stent present. There is no pathologic bowel dilatation. There are no transition zones indicate bowel obstru ction. IMPRESSION: No evidence of pathologic bowel dilatation Electronically signed by: Washington Odonnell M.D. 07/01/2019 10:57 AM
--- NOTE | 2019-07-01 12:45 | Discharge Summary ---
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 The patient presented to the emergency room with the complaints of chest pain which started this afternoon. He woke up from sleep with retrosternal chest pain radiating to the right side of his chest. He rates it as 8 out of 10 intensity lasted for approximately 2 hours. Currently the patient is chest pain-free. The first set of EKG and cardiac enzymes is negative; he will be admitted under observation for further evaluation and management. Admission Exam Per Admitting Provider GENERAL : No acute distress EYES: No icterus, gaze conjugate NOSE: No evidence of epistaxis MOUTH: No lesions or candidiasis, mucosa moist NECK: Supple LUNGS: CTA B/L, no wheezes, rales or rhonchi HEART: Regular, rate controlled ABDOMEN: Soft, NT, ND, BS Present EXTREMITIES: No LE edema, pedal pulses intact NEURO: A&OX3 Principal Diagnosis Cholelithiasis with choledocholithiasis s/p ERCP and cholecystectomy Discharge Exam General: Resting comfortably HEENT: NC/AT; PERRLA with EOMI; [place] conjunctiva, MMM. No erythema of posterior pharynx Neck: Supple and nontender Cardiac: RRR Lungs: CTA bilaterally Abdomen: Incision sites without erythema or discharge; Bowel hypoactive x 4; non tender to palpation Extremities: Warm. No edema present Neuro: No focal weakness Skin: No rash Discharge Data Allergies Allergy/AdvReac Type Severity Reaction Status Date / Time No Known Allergies Allergy Unverified 06/27/19 15:11 Consultations 06/27/19 16:21 ED Decision to Admit Stat 06/28/19 16:26 Consult Gastroenterology Routine 06/28/19 17:46 Consult General Surgery Routine Procedures Performed Operation Date: 06/29/19 13:00 Actual Procedures s Endoscopic retrograde cholangiopancreatography - Jose Dominguez p Laparoscopic Cholecystectomy(Not Applicable) - Charly Chisholm MD Echocardiogram Stress Echocardiogram Ordered Studies 06/28/19 14:03 US liver Routine 06/28/19 16:16 MR MRCP Routine 06/29/19 07:00 FL ERCP biliary ductal Routine KUB Hospital Course (1) Cholelithiasis with choledocholithiasis: With CBD obstruction; s/p ERCP and lap dat on 06/29/19. Also had placement of pancreatic stent. Recommend to avoid NSAIDs or ASA for 2 weeks. Surgery and GI both consulted -- will need to f/u with GI in 2-4 weeks with KUB to evaluate for pancreatic stent passage. LFTs trending downward-follow as outpatient to ensure return to normal (2) Diabetes: A1C was 7.6. Resume home meds at discharge. (3) Hepatic steatosis: Followed by PCP. (4) Hyperlipidemia: Continued home statin. (5) Renal calculi: Large right renal pelvis calculus measuring 2.6 x 1.5 cm with mild right hydronephrosis noted on MRCP. Recommend outpatient follow up. (6) Adrenal nodule: Indeterminate 2.4 cm left adrenal nodule noted on MRCP. Recommend outpatient follow up. (7) Chest pain: initially presented with chest pain which was right sided and related ot his choledocholithiasis Serial troponin negative Stress ECHO negative for inducible ischemia Rest ECHO with preserved EF -needs modification of risk factors, increased exercise, weight loss, and smoking cessation (8) DVT prophylaxis: SCDs; held pharmacologic ppx for procedure. Discharged to home on 07/01/19. Total Time Total Time Spent Total Time Spent (In Minutes): >30 minutes Total Time Includes: Examination of the Patient, Discharge Planning, Medication Reconciliation, Communication With Other Providers and Other Discharge Plan Discharge Items Patient Disposition: Home - Self-Care Reason For Visit: CP Discharge Diagnosis: Cholelithiasis and choledocholithiasis (stones gall bladder and common bile duct) causing obstruction, without acute cholecystitis Hepatic steatosis (fatty liver) Condition on Discharge: Good Activity: Per Instructions section Non-emergency contact: Primary Care Provider and Surgeon Call non-emergency contact if: your pain is not controlled, your pain is worsening, you have a fever, your temperature is above 101, your wound has increased redness, your wound has increased drainage and your wound pain has increased Follow-up/Referrals: Epifanio García [Other] (f/u within 2 weeks.) Diet: Carb Consistent or DM2 and Heart Healthy Ambulatory Orders: Comprehensive Metabolic Panel (Routine) Timeframe: 1 Week Location: Determined by Patient Ordered By: Zhen Cartagena Attending Provider Instructions: You were admitted to [facility] from June 27 to June 30, 2019 due to an episode of right upper quadrant abdominal pain. You were subsequently diagnosed with gallstones in your gallbladder as well as common bile duct causing obstruction. This was confirmed on ultrasound and MRCP (magnetic resonance cholangiopancreatography). You underwent ERCP (endoscopic retrograde cholangiopancreatography) on [address] Dominguez ([facility] gastroenterology) with stone removal and pancreatic stent placement. After this you underwent cholecystectomy (gallbladder removal) by Dr. Chisholm ([facility] general surgery). Your gallbladder has been sent for pathology as routine, results pending on discharge. Please follow-up with your primary care provider within the next 2 weeks if you cannot follow-up locally. Recommend abdominal x- ray in 2 to 4 weeks to ensure passage of the pancreatic stent (otherwise you will need to arrange EGD for removal). No aspirin or NSAIDs (nonsteroidal anti- inflammatory drugs - any [id number] pain medication other than acetaminophen) for 2 weeks. Due to concern your pain may have been cardiac related given significant risk factors, you underwent exercise stress echocardiogram which was negative for induced ischemia. Please follow-up with your primary care physician for ongoing cardiovascular risk reduction. Your ultrasound was also concerning for hepatic steatosis (fatty liver). This is most likely secondary to obesity and diabetes. Please follow-up with your primary care physician regarding this as it can lead to liver cirrhosis. Repeat labs ordered for approximately 1 week to check for resolution of your liver enzymes. Post-Surgical ~Discharge Instructions Activity Recommendations: - lifting limitation: (10 pounds for 2 weeks), - exercise/sex/sports limit: (nonstrenuous for 2 weeks), - driving or machine use limit: (none for 2 weeks), - Shower/bathe limit: (may shower Diet: - Resume previous diet SPECIAL CARE INSTRUCTIONS: - May shower. Let water run over area and pat dry. - Leave steri strips on for one week. - Call the surgeon's office with any questions or concerns - - (ex. temperature higher than 101 degrees F, excessive bleeding or pain). MEDICATIONS: - Resume previous medications unless instructed otherwise by your surgeon. - Percocet 1 every 4 hours, as needed for pain - May take extra strength Tylenol every 6 hours as needed for mild pain. - DO NOT take extra strength Tylenol with Percocet as Percocet has Tylenol in it. FOLLOW UP VISIT: - If not already scheduled, please call the office to schedule a two week follow-up appointment. Office number Pending Studies at Discharge: Yes (Gallbladder pathology, will be reviewed at follow up visit) Stand-Alone Forms: [facility], Opioid Pain Management, Work/School Release (Inpt), Smoking Cessation Medications and DC Order Prescriptions: New oxycodone-acetaminophen 5-325 mg tablet 1 tab PO Q4H PRN (Reason: pain) Qty: 5 RF: 0 Continued pravastatin [Pravachol] 40 mg tablet 40 mg PO QPM RF: 0 lisinopril 5 mg tablet 5 mg PO DAILY RF: 0 metformin [Glucophage XR] 500 mg tablet extended release 24 hr 1,000 mg PO BID RF: 0 Jardiance 25 mg tablet 25 mg PO DAILY RF: 0 Discontinued ibuprofen 200 mg Tablet 600 mg PO Q6H PRN (Reason: Pain) RF: 0 Discharge Orders: Discharge Order (Routine); Ordered 07/01/19 Ordered By: Tita Cardozo/Other Patient Handouts: Gallstones Dc, Cholecystectomy Laparoscopic Dc Admission Data Admit Date/Time: 06/28/19 16:14 Attending Provider: Tita Grossman Admit Provider: Ilan Samson Primary Care Provider: PCP,NO Other Providers: Ilan Samson ; Jose Dominguez ; Charly Chisholm Other Interventions: Discharge Summary Assessment (RN) Last Done: 07/01/19 12:24 DC Date/Time DO NOT enter until pt leaves facility: 07/01/19 13:03 Supervising Physician Co-Signing Physician Notes PA Supervision Note: I personally saw and examined the patient. I verified all darden points and agree with MARGY Cortez with the following exceptions and/or additions: Pt doing very well post-op. Had some mild abd distension, constipation but passing flatus, yanely po, no N/V. Pain controlled. No chest pain or SOB VSS RRR no mgr CTAB no wcr +BS soft NT mild distension Ext no calf tenderness or edema Stable for dc to home with close outpt f/u with GI and PCP
== END 2019-07-01 13:03 | disposition home or self-care (01) | DRG 419 ==
LOC: ED 14:50 → 2N 14:50 → SUATTDRO 17:31 → 2N 18:49 → SUATTDRO 06-28 16:14 → 3N 06-29 14:27